=== PATIENT | male | born 1955 | race Caucasian/White ===

== ENCOUNTER 2017-08-17 12:25 | Inpatient (IN) | payer SELFPAY ==
[~2017-08-17] VITALS: Ht 190.5 cm; Wt 152.0 kg
[2017-08-17] VITALS (17 sets, daily range): BP systolic 101–144; BP diastolic 78–111
[2017-08-17] MEDS ORDERED: DILTIAZEM HCL VIAL 5 ML ONE (12:44)
[2017-08-17] MEDS ORDERED: SODIUM CHLORIDE 0.9% 1000ML 1,000 ML ONE (12:44)
[2017-08-17] MEDS ORDERED: ONDANSETRON HCL INJ 2 MG/ML VIAL IV STA ×2 (12:47→13:52)
[2017-08-17] MEDS ORDERED: PANTOPRAZOLE 40 MG 10ML VIAL IV STA (12:47)
[2017-08-17] MEDS ORDERED: VANCOMYCIN 1GM/NS 250 ML 250 ML IV STA (12:47)
[2017-08-17] MEDS ORDERED: SODIUM CHLORIDE 0.9% 1000ML 1,000 ML IV STA ×2 (12:47→12:52)
[2017-08-17 12:59] LABS: BASOPHILS % 0.2 % (0.0-1.0); EOSINOPHILS % 0.1 % (0.0-6.0); HEMOGLOBIN 15.3 g/dL (14.0-18.0); LYMPHOCYTES # (AUTO) 0.9 (1.0-3.2); LYMPHOCYTES % 5.5 % (18.0-39.1); MEAN CORPUSCULAR HGB CONC 32.6 g/dL (31-35); MEAN CORPUSCULAR VOLUME 98.3 fL (81-99); MONOCYTES # (AUTO) 0.6 (0.2-0.8); MONOCYTES % 3.7 % (4.4-11.3); NEUTROPHILS # (AUTO) 15.1 (2.1-6.9); NEUTROPHILS % 89.9 % (38.7-80.0); PLATELET COUNT 139 x10e3/uL (140-360); RED BLOOD COUNT 4.78 x10e6/uL (4.3-5.7); RED CELL DISTRIBUTION WIDTH 14.3 % (11.7-14.4)
[2017-08-17] MEDS ORDERED: DILTIAZEM HCL 5 MG/ML 5 ML VIAL IV ONE ×2 (13:00)
[2017-08-17] MEDS ORDERED: ASPIRIN 81 MG CHEW TAB PO ONE ×2 (13:00→16:00)
[2017-08-17 13:03] LABS: INR 1.46; PROTHROMBIN TIME 16.7 seconds (11.9-14.5)
[2017-08-17 13:04] LABS: PARTIAL THROMBOPLASTIN TIME 32.4 seconds (23.8-35.5)
[2017-08-17 13:13] LABS: ALANINE AMINOTRANSFERASE 40 IU/L (0-55); ALBUMIN/GLOBULIN RATIO 0.7 (0.8-2.0); ALKALINE PHOSPHATASE 75 IU/L (40-150); ANION GAP 12.3 mmol/L (8-16); BLOOD UREA NITROGEN 24 mg/dL (7-26); BUN/CREATININE RATIO 23 (6-25); CALCIUM 9.4 mg/dL (8.4-10.2); CARBON DIOXIDE 26 mmol/L (22-29); CHLORIDE 93 mmol/L (98-107); CREATINE KINASE 229 IU/L (30-200); CREATININE, SERUM 1.06 mg/dL (0.72-1.25); EST GLOMERULAR FILTRATION RATE > 60 ML/MIN (60-); GLUCOSE 136 mg/dL (74-118); MAGNESIUM 1.6 MG/DL (1.3-2.1); POTASSIUM 4.3 mmol/L (3.5-5.1); SODIUM 127 mmol/L (136-145)
[2017-08-17 13:22] LABS: B-TYPE NATRIURETIC PEPTIDE2 203.7 pg/mL (0-100)
[2017-08-17] MEDS ORDERED: DILTIAZEM HCL 5 MG/ML 5 ML VIAL IV NR ×2 (13:44→18:30)
[2017-08-17] MEDS ORDERED: HYDROMORPHONE 1MG/1ML INJ IV STA (13:52)
[2017-08-17] MEDS: DILTIAZEM HCL IV SOLN 125 MG in SODIUM CHLORIDE 0.9% 100 ML IV SCH (13:58)
[2017-08-17] MEDS: SODIUM CHLORIDE 0.9% 1000ML 1,000 ML IV SCH ×2 (14:45→23:00)
[2017-08-17] MEDS ORDERED: AMIODARONE HCL 900 MG in DEXTROSE 5% 500ML 500 ML IV ONE (15:00)
--- NOTE | 2017-08-17 15:14 | Diagnostic Imaging Report ---
PROCEDURE: CHEST SINGLE (PORTABLE) COMPARISON: None. INDICATIONS: CHEST PAIN, DYSPNEA FINDINGS: Lungs are well-inflated. No focal airspace consolidation, pleural effusion, or pneumothorax. Calcified granuloma in the left lower lung zone. The cardiac silhouette is enlarged with prominence of the central pulmonary vasculature. No acute osseous abnormality. CONCLUSION: Cardiomegaly and pulmonary venous congestion. Dictated by: Lake Real M.D. on 08/17/2017 at 13:49 Electronically approved by: Lake Real M.D. on 08/17/2017 at 13:49
[2017-08-17] MEDS ORDERED: AMIODARONE HCL 150MG 100 ML IV NR (15:45)
[2017-08-17] MEDS ORDERED: HYDROMORPHONE 1MG/1ML INJ IV NR (15:46)
[2017-08-17] MEDS ORDERED: HYDROMORPHONE 1MG/1ML INJ IV PRN (16:00)
[2017-08-17] MEDS ORDERED: METOPROLOL TARTRATE INJ 1 MG/ML VIAL IV ONE ×2 (16:45→16:50)
[2017-08-17] MEDS ORDERED: DEXTROSE 50% SYRINGE 50 ML IV PRN (17:00)
[2017-08-17] MEDS ORDERED: DIGOXIN INJ 0.25 MG/ML 2 ML AMP IV ONE (17:00)
[2017-08-17] MEDS: METOPROLOL SUCCINATE 50 MG TAB XL PO SCH (17:10)
[2017-08-17 17:24] LABS: BILIRUBIN,URINE 2+ (NEGATIVE); CLARITY,URINE SL CLOUDY (CLEAR); COLOR,URINE STRAW (YELLOW); KETONES,URINE NEGATIVE (NEGATIVE); LEUKOCYTE ESTERASE ,URINE NEGATIVE (NEGATIVE); NITRITE,URINE NEGATIVE (NEGATIVE); PROTEIN,URINE DIPSTICK 1+ (NEGATIVE); URINE UROBILINOGEN 4 mg/dL (0.2 - 1)
[2017-08-17 17:33] LABS: ABG HCO3 27 mmol/L (23-28); ABG PCO2 89 mmHg (41-51); ABG PH 7.08 (7.31-7.41); ABG PO2 181 mmHg (80-105)
[2017-08-17 17:37] LABS: AMORPHOUS SEDIMENT,URINE FEW (FEW); BACTERIA,URINE MANY /HPF
[2017-08-17] MEDS: PIPER-TAZ 3.375 GM 50 ML IV SCH (18:30)
--- NOTE | 2017-08-17 18:38 | Consultation ---
DATE OF CONSULTATION: August 17, 2017 ADDENDUM CRITICAL CARE NOTE Case discussed with Dr. Hinojosa, Dr. Hirsch, Dr. Burkett. The patient is quite hypoxic on nasal oxygen. His saturation was at level of 80%. Blood gas was drawn. He is now placed on BiPAP with improvement in saturation to 97%. Begin diuresis. Therapy of leg wound as per Dr. Burkett. The patient is agreeable to full measures if necessary, but would prefer not to be intubated if possible. Thank you for this kind referral. Greater than 40 minutes critical care time spent. Job#: [id number]
[2017-08-17] MEDS ORDERED: IPRATROPIUM BROMIDE 0.02% 2.5 ML NEB NEB SCH (19:00)
[2017-08-17] MEDS ORDERED: ACETAMINOPHEN 325 MG TAB PO PRN (19:00)
--- NOTE | 2017-08-17 20:09 | History and Physical ---
HISTORY OF PRESENT ILLNESS: A 62-year-old male with past medical history positive for COPD, very poor historian, history of right congestive heart failure, history of diabetes mellitus type 2. He came here with shortness of breath. The patient was found to be with COPD exacerbation. He was found to have cellulitis on the right leg and admitted to the hospital. REVIEW OF SYSTEMS: CARDIOVASCULAR: No chest pain or palpitation. RESPIRATORY: Shortness of breath but no cough. GASTROINTESTINAL: No nausea, vomiting or diarrhea. GENITOURINARY: No frequency, no dysuria. ALLERGIES: IS NOT ALLERGIC TO ANY MEDICATION. SOCIAL HISTORY: He claims that he does not smoke. He does not drink. PAST MEDICAL HISTORY: Positive for sleep apnea, diastolic congestive heart failure, chronic atrial fibrillation and morbid obesity. PHYSICAL EXAMINATION: VITAL SIGNS: Blood pressure 130/95, temperature is 98 degrees and the heart rate 152 per minute. Respiratory rate 20 per minute. Oxygen saturation on BiPAP 94%. HEART: Showed irregular, irregular rate. No murmur. No extra sounds. LUNGS: Decreased breath sounds bilaterally. ABDOMEN: Soft. EXTREMITIES: Show redness on the right leg with a pretty significant open area. LABORATORY DATA: Blood work we have BMP with a sodium 137, potassium 4.3, chloride 93. CO2 26. BUN 24, creatinine 1.06. Glucose 136. On the CBC white blood count 16.7, hemoglobin 15.3, hematocrit 47.0, platelet count 139,000. PT 16.7. INR 1.46. PTT 32.4. AST 50, ALT 40. Total bilirubin 1.8. Alkaline phosphatase 75. Chest x-ray showed essentially cardiomegaly with pulmonary venous congestion. FINAL IMPRESSION: 1. Acute respiratory failure secondary to acute chronic obstructive pulmonary disease exacerbation and congestive heart failure. 2. Right-sided congestive heart failure. 3. Cellulitis on the right leg. 4. Atrial fibrillation with rapid ventricular response. 5. Morbid obesity. 6. Leukocytosis. 7. Hyponatremia. PLAN OF TREATMENT: Continue with Lasix. Continue Cardizem drip. Continue Zosyn 3.375 grams IV q.6 hours. Continue vancomycin 1 gram IV piggyback twice a day. Continue with D50 IV push as needed for low blood sugar. Continue with Lasix 40 mg IV push twice a day. Continue Dilaudid, which we are going to discontinue after today, and this is to be noted. Continue metoprolol 50 mg twice a day. Continue with the NicoDerm transdermal patch 21 mg daily. Zofran 4 mg IV q.[address] on Tylenol 325 mg p.o. q.4 h. as needed for pain or fever. Going to use morphine only as needed 2 mg IV q.4 h.as needed. The patient is going to be in the intensive care unit. He is on a BiPAP machine. Dr. Jackson has been consulted from pulmonary point of view and Dr. Hirsch for the cardiology point of view also. Patient is in critical condition. Going to also order a hemoglobin A1c. Job#: [id number]
[2017-08-17] MEDS: IPRATROPIUM BROMIDE 0.02% 2.5 ML NEB NEB SCH ×2 (20:20→22:30)
--- NOTE | 2017-08-17 20:46 | Diagnostic Imaging Report ---
Ventilation/perfusion lung scan Clinical Information: 62 M with chest pain, SOB and hypoxia. Comparison: Chest radiograph 08/17/2017 Discussion: Xenon-133 gas 19 mCi was administered via inhalation. Dynamic images of the lungs in the posterior projection were obtained through single breath, equilibrium, and washout phases. Distribution of tracer activity is irregular throughout the lungs. There are no segmental ventilatory defects. Washout of tracer is diffusely delayed without air trapping. Perfusion images of the lungs were obtained in multiple projections following intravenous administration of approximately 6.6 mCi of Tc-99m MAA. Distribution of tracer is irregular throughout the lungs. The contours of the lungs are well demarcated. There are no segmental perfusion defects of any size. The cardiomediastinal silhouette is enlarged. Impression: 1. Scan findings represent a VERY LOW probability for acute pulmonary embolic disease based on the PIOPED II criteria. Scan evidence of obstructive lung disease. 2. Scan findings consistent with COPD. 3. Enlarged cardiac silhouette. Signed by: Dr. Che Grimaldo M.D. on 08/17/2017 8:42 PM
[2017-08-17] MEDS: INSULIN REGULAR, HUMAN 100 UNIT/1 ML 3ML VIAL SQ SCH (21:00)
[2017-08-17] MEDS ORDERED: ENOXAPARIN SOD INJ 40 MG/0.4 ML SYR SC SCH (21:00)
--- NOTE | 2017-08-17 21:16 | Consultation ---
DATE OF CONSULTATION: August 17, 2017 CARDIAC CONSULTATION REASON FOR THE CONSULTATION: Cor pulmonale, right-sided heart failure, pickwickian, atrial fibrillation with rapid ventricular response, severe cellulitis of the right lower extremity. HISTORY: This is an unfortunate 62-year-old gentleman who is basically heavy smoker. He is known with long-standing history of COPD, cor pulmonale. He does have chronic swelling of the lower extremities, is bluish in color, and he always fights for his breath. He is seen locally by several physicians. They have given him fluids pills and other breathing treatment. Patient really truly is crippled, disabled, unable to do anything. He came to the emergency room because of worsening shortness of breath. His problem started with redness and skin loss and marked edema of the right lower extremity. Patient does have chronic swelling of both lower extremities with chronic skin changes. However, the right lower extremity seems to be infected. It is red, it is tender, and redness going all the way to the high side. Patient is miserable. He came to the emergency room because he cannot breathe. Having fever, chills. He is very ill. He was in atrial fibrillation with rapid ventricular response. Patient was in severe respiratory distress. He is on BiPAP. He was "blue in color." His white blood cell count was 16.8 with left shift. His lactic acid is 20.3. His BNP only 203. His ABGs or may be venous sample showed a pH of 7.08, pCO2 of 89, pO2 of 181, on BiPAP. His BUN 24, creatinine of 1.1. His CK total mildly elevated. His troponin is normal. I visited with the patient whom by summary chronically his symptoms are orthopnea; paroxysmal nocturnal dyspnea; and swelling of the lower extremities; class IV shortness of breath at rest, progressively worse over the last few years, worse recently. He does have acute cellulitis of the lower extremities. REVIEW OF SYSTEMS: Done to all systems, only positive ones will be mentioned. GENERAL: Fever, chills. PULMONARY: Very advanced cough, shortness of breath, orthopnea, etc and cyanosis. CARDIAC: No anginal chest pain. No prior myocardial infarction. GI: Bloating, indigestion, marked distention of the abdomen, mainly the lower abdomen. EXTREMITIES: Chronic swelling and edema. NEUROLOGICAL: No motor deficit, but very weak. OTHERS: Severe cellulitis of the right lower extremity with acute illness. SOCIAL HISTORY: He is smoker. He stays with his sister. He is non-alcohol drinker. HOME MEDICATIONS: Diuretics, cannot recall the name. CURRENT MEDICATIONS: Amiodarone, diltiazem, Lasix, Lovenox, vancomycin, Zosyn. ALLERGIES: NONE LISTED. FAMILY HISTORY: No family history of premature coronary artery disease. PHYSICAL EXAMINATION: VITAL SIGNS: Height of 6 feet 4 inches, weight of pounds. Blood pressure 130/100. Heart rate of 160 per minute, irregularly irregular of atrial fibrillation. Respiratory rate is 40 per minute. Temperature of 100 Fahrenheit. HEENT: Pupils are reactive. NECK: Very difficult to assess jugular venous pulsation. CHEST: The chest is hyperinflated with poor air exchange. HEART: Atrial fibrillation with rapid ventricular response. Cyanosis is noted. ABDOMEN: Obese. There is evidence of dependent edema from the umbilical level all the way to the scrotal area. EXTREMITIES: Lower extremities, chronic swelling and chronic skin changes of both lower extremities. On the right, there is evidence of skin loss of the foreleg and evidence of severe cellulitis with streaks of cellulitis all the way to the groin. NEUROLOGICAL: Patient awake, alert. He is able to move his extremities. LAB DATA: White blood cell count of 16.8 with left shift. ABG showed pH of 7.08, pCO2 of 89. BNP of only 203. CK total mildly elevated. Troponin is normal. BUN of 24, creatinine of 1.1. Lactic acid is elevated. IMPRESSION AND PLAN: 1. Cellulitis of the right lower extremity superimposed on chronic venous insufficiency and cor pulmonale finding. 2. Sepsis secondary to the above with hypotension. 3. Atrial fibrillation with rapid ventricular response. 4. Chronic obstructive pulmonary disease, pickwickian, morbid obesity, smoker with hypercapnic respiratory distress, on bi-PAP positive airway pressure. 5. Cor Pulmonale and advanced right heart failure 6. Debility. PLAN: Will be towards addressing the acute septic status and infection with IV antibiotics and IV fluids rescue. He does have cor pulmonale, pickwickian, and right-sided heart failure. His BNP is only 203. Controlling his atrial fibrillation with Cardizem, anticoagulation. Prognosis is very guarded. Case discussed with the nursing staff. Case discussed with Dr. Jackson and Dr. Hinojosa. Job#: [id number] DR WILEY
[2017-08-17] MEDS: ENOXAPARIN INJ 80 MG/0.8 ML SYR SC SCH (21:20)
[2017-08-17] MEDS: FUROSEMIDE INJ 10 MG/ML 4 ML VIAL IV SCH (21:20)
[2017-08-17 22:08] LABS: CREATINE KINASE MB 4.8 ng/mL (0-5.0)
--- NOTE | 2017-08-17 23:59 | Diagnostic Imaging Report ---
EXAM: CHEST XRAY LINE PLACEMENT, AP 1 view INDICATION: Right PICC placement COMPARISON: None FINDINGS: LINES/TUBES: Right approach PICC with tip terminating in the expected location of the distal superior vena cava. LUNGS: Vascular congestion/edema PLEURA: No effusions or pneumothorax. HEART AND MEDIASTINUM: Enlargement of the cardiomediastinal silhouette. BONES AND SOFT TISSUES: No acute findings. IMPRESSION: Marked enlargement of the cardiomediastinal silhouette with vascular congestion/early edema. Tip of right approach PICC terminates in expected location of the distal superior vena cava. Signed by: Dr. Brittny Jacques M.D. on 08/17/2017 11:56 PM
[2017-08-18] VITALS (114 sets, daily range): BP systolic 47–133; BP diastolic 25–118
[2017-08-18] MEDS: PIPER-TAZ 3.375 GM 50 ML IV SCH ×3 (00:26→12:00)
[2017-08-18] MEDS: DILTIAZEM HCL IV SOLN 125 MG in SODIUM CHLORIDE 0.9% 100 ML IV SCH (00:29)
[2017-08-18] MEDS: IPRATROPIUM BROMIDE 0.02% 2.5 ML NEB NEB SCH ×4 (02:15→18:45)
[2017-08-18] MEDS ORDERED: VANCOMYCIN HCL 1 GM in SODIUM CHLORIDE 0.9% 250ML 250 ML IV SCH (05:00)
[2017-08-18] MEDS ORDERED: VANCOMYCIN HCL 1GM/NS 250 ML BAG IV SCH (05:00)
[2017-08-18] MEDS ORDERED: VANCOMYCIN 1GM/NS 250 ML 250 ML IV SCH ×2 (05:00→13:15)
[2017-08-18 05:31] LABS: ABG PH 7.07 (7.31-7.41)
[2017-08-18 05:32] LABS: ABG HCO3 26 mmol/L (23-28); ABG PCO2 90 mmHg (41-51); ABG PO2 75 mmHg (80-105)
[2017-08-18 06:09] LABS: BASOPHILS % 0.1 % (0.0-1.0); HEMATOCRIT 48.2 % (38.2-49.6); HEMOGLOBIN 14.8 g/dL (14.0-18.0); LYMPHOCYTES # (AUTO) 0.4 (1.0-3.2); LYMPHOCYTES % 2.1 % (18.0-39.1); MEAN CORPUSCULAR HEMOGLOBIN 32.2 pg (28-32); MEAN CORPUSCULAR HGB CONC 30.7 g/dL (31-35); MEAN CORPUSCULAR VOLUME 104.8 fL (81-99); MONOCYTES # (AUTO) 1.1 (0.2-0.8); MONOCYTES % 5.2 % (4.4-11.3); NEUTROPHILS # (AUTO) 18.5 (2.1-6.9); PLATELET COUNT 180 x10e3/uL (140-360); RED CELL DISTRIBUTION WIDTH 14.6 % (11.7-14.4)
[2017-08-18 06:24] LABS: INR 1.55; PROTHROMBIN TIME 17.5 seconds (11.9-14.5)
[2017-08-18] MEDS ORDERED: MIDAZOLAM HCL 2 MG/2 ML VIAL IV PRN (06:30)
[2017-08-18 06:38] LABS: CREATINE KINASE MB 3.5 ng/mL (0-5.0)
[2017-08-18] MEDS: FENTANYL CITRATE INJ 2,000 MCG in SODIUM CHLORIDE 0.9% 250ML 210 ML IV PRN ×2 (06:57→21:03)
[2017-08-18 06:59] LABS: CALCIUM 8.4 mg/dL (8.4-10.2); CREATININE, SERUM 2.06 mg/dL (0.72-1.25)
[2017-08-18] MEDS: INSULIN REGULAR, HUMAN 100 UNIT/1 ML 3ML VIAL SQ SCH ×4 (07:30→20:32)
[2017-08-18 07:35] LABS: BAND NEUTROPHILS % (MANUAL) 2 %; LYMPHOCYTES % (MANUAL) 1 % (19-48); MONOCYTES % (MANUAL) 4 % (3.4-9.0); NEUTROPHILS % (MANUAL) 93 % (40-74)
[2017-08-18 07:36] LABS: PLATELET ESTIMATE ADEQUATE; RBC MORPHOLOGY COMMENT NORMAL
[2017-08-18] MEDS ORDERED: AMIODARONE HCL 900 MG in DEXTROSE 5 % 500ML BOTTLE 500 ML IV SCH (08:15)
--- NOTE | 2017-08-18 08:25 | Diagnostic Imaging Report ---
EXAM: CHEST SINGLE (PORTABLE), AP 2 views INDICATION: Intubation. Tube placement. COMPARISON: 08/17/17. FINDINGS: LINES/TUBES: Right approach PICC with tip terminating in the expected location of the distal superior vena cava. ET tube has been placed, with final image demonstrating its distal tip projected at the level of the sternal clavicular junction is thoracic inlet adequate position. LUNGS: Bilateral pulmonary venous congestion and central pulmonary edema. PLEURA: No pneumothorax. Small left pleural effusion with obscuration of the left hemidiaphragm. HEART AND MEDIASTINUM: Enlargement of the cardiomediastinal silhouette. BONES AND SOFT TISSUES: No acute findings. IMPRESSION: Status post ET tube placement with distal tip in adequate position on final image. Otherwise no significant change. Signed by: Dr. Tanvi Rizvi M.D. on 08/18/2017 8:21 AM
[2017-08-18] MEDS: SILVER ANTIMICROBIAL WOUND GEL 45ML TP SCH (09:00)
[2017-08-18] MEDS ORDERED: ENOXAPARIN INJ 80 MG/0.8 ML SYR SC SCH (09:00)
[2017-08-18] MEDS: FUROSEMIDE INJ 10 MG/ML 4 ML VIAL IV SCH (09:00)
[2017-08-18] MEDS: METOPROLOL SUCCINATE 50 MG TAB XL PO SCH (09:00)
[2017-08-18] MEDS ORDERED: ENOXAPARIN SOD INJ 40 MG/0.4 ML SYR SC SCH (09:00)
[2017-08-18] MEDS: ENOXAPARIN INJ 80 MG/0.8 ML SYR SC SCH (09:00)
[2017-08-18 09:28] LABS: ABG PH 7.06 (7.31-7.41)
[2017-08-18 09:29] LABS: ABG HCO3 24 mmol/L (23-28); ABG PCO2 85 mmHg (41-51); ABG PO2 53 mmHg (80-105)
[2017-08-18 09:31] LABS: ABG PCO2 65 mmHg (41-51); ABG PH 7.18 (7.31-7.41)
[2017-08-18 09:32] LABS: ABG HCO3 24 mmol/L (23-28); ABG PO2 54 mmHg (80-105)
[2017-08-18] MEDS ORDERED: SODIUM BICARBONATE 8.4% INJ 50 ML SYR IV ONE (10:09)
[2017-08-18] MEDS ORDERED: SOD POLYSTYRENE SULFONATE SUSP 15 GM/60 ML BTL PO ONE (10:30)
[2017-08-18] MEDS ORDERED: AZITHROMYCIN 500MG/NS 250 ML 250 ML IV SCH (12:45)
[2017-08-18] MEDS ORDERED: FUROSEMIDE INJ 10 MG/ML 4 ML VIAL IV ONE ×2 (13:45→15:30)
[2017-08-18] MEDS: CEFEPIME HCL 2 GM VIAL IV SCH ×2 (14:00→21:00)
--- NOTE | 2017-08-18 14:16 | Consultation ---
DATE OF CONSULTATION: REASON FOR CONSULTATION: Sepsis, cellulitis of the leg. HISTORY OF PRESENT ILLNESS: This is a 62-year-old white male who has history of obesity, cor pulmonale, right-sided failure, atrial fibrillation, COPD, smoker. Comes in disheveled. Comes into the hospital because he was not doing well. Short of breath. Intubated currently. He was noted to have a large bullous on his right leg. The patient is currently intubated and sedated. There is no family. History was taken mainly from the chart. The patient has been seen by cardiology and critical care. I was asked to see him to help with antibiotic. Patient does not provide any information. At the present time, he is intubated and sedated. PAST MEDICAL HISTORY: Obesity, COPD, CHF. PAST SURGICAL HISTORY: Not available. ALLERGIES: NKA. SOCIAL HISTORY: Positive for smoker. PHYSICAL EXAMINATION GENERAL: He is currently intubated and sedated. VITALS: Stable. Temperature is 97.5. No fever since admission. HEENT: Not icteric. NECK: Supple. CHEST: Clear. COR: No murmur. ABDOMEN: Soft, obese. There are redness and swelling involving his right leg from the knee all the way to the ankle. IMPRESSION: Sepsis present on admission, source is cellulitis of the right leg. Will put him on vancomycin and cefepime. Await the blood cultures. There is husky discoloration in the feet. I am concerned about circulatory problem. Prognosis is very guarded. Will follow vancomycin trough. Will follow up the cultures. Will follow with you. Job#: [id number]
[2017-08-18] MEDS: FUROSEMIDE INJ 100 MG in SODIUM CHLORIDE 0.9% 100 ML 90 ML IV SCH ×2 (14:30→23:17)
[2017-08-18] MEDS: MIDAZOLAM HCL 2 MG/2 ML VIAL IV PRN ×3 (14:41→23:25)
--- NOTE | 2017-08-18 15:04 | Diagnostic Imaging Report ---
EXAM: CHEST SINGLE (PORTABLE), AP 2 views INDICATION: Orogastric tube placement. COMPARISON: 08/17/17. 08/18/2017 at 7:42 AM hours. LINES/TUBES: Right approach PICC with tip terminating in the expected location of the distal superior vena cava. ET tube with distal tip projected at the level of the sternal clavicular junction is thoracic inlet adequate position, unchanged. Interval placement of an orogastric tube, which extends below the diaphragm, with distal tip not well visualized, however, in the gastric fundus or upper body. LUNGS: Bilateral pulmonary venous congestion and central pulmonary edema. Atelectasis. PLEURA: No pneumothorax. Small left pleural effusion with obscuration of the left hemidiaphragm. HEART AND MEDIASTINUM: Enlargement of the cardiomediastinal silhouette. BONES AND SOFT TISSUES: No acute findings. IMPRESSION: Status post orogastric tube placement the tip projected on the left upper quadrant, likely within upper stomach. Otherwise no significant change. Signed by: Dr. Tanvi Rizvi M.D. on 08/18/2017 3:01 PM
--- NOTE | 2017-08-18 15:24 | Consultation ---
DATE OF CONSULTATION: August 18, 2017 NEPHROLOGY CONSULTATION REASON FOR CONSULTATION: Acute kidney injury, hyperkalemia and hyponatremia. HISTORY OF PRESENT ILLNESS: This is a 62-year-old white gentleman with a past medical history of heavy smoking and normal serum creatinine of 1.1 in the past, COPD, morbid obesity, sleep apnea, congestive heart failure, chronic atrial fibrillation, was admitted with shortness of breath, right leg cellulitis, and AFib with RVR. He was noted to have elevated serum creatinine of around 2. While in the ER, his blood pressure dropped and he became more short of breath and hypoxic. He was intubated and transferred to the ICU. Nephrology consultation was obtained since he does not make much urine. Creatinine was 8. Potassium was 6 and sodium was 122. At the time of my examination, he appeared in no acute distress. He was intubated, but awake. PAST MEDICAL AND SURGICAL HISTORY: As above. PERSONAL/SOCIAL HISTORY: Could not be obtained reliably as the patient was intubated. MEDICATIONS: See the medication sheet that was reviewed. I's and O's 1280 and 400 out, but in the last 4-6 hours, he has made only 20 mL of urine. PHYSICAL EXAMINATION VITALS: Blood pressure 97/68, respirations 18, heart rate 89. HEENT: Head was atraumatic and normocephalic. Pupils were reactive to light. NECK: Supple. No JVD, no lymphadenopathy or thyromegaly. CHEST: Revealed fair air entry with bibasilar crackles. HEART: S1 and S2. ABDOMEN: Obese and soft. Bowel sounds were positive. EXTREMITIES: Chronic edema. Varicose veins and possibly lymphedema with redness, erythema and swelling of the right leg up to the thigh from cellulitis. 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 LABS: White cell count 20.1, hemoglobin 14.8, hematocrit 48.2, and platelets 180,000. Urine showed specific gravity of 1.030, pH 6, 2+ bilirubin, otherwise negative. Sodium 122, potassium 6, chloride 89, CO2 23, BUN 35, creatinine 2.06. His serum creatinine yesterday was 1.06. IMAGING: Chest x-ray showed central pulmonary vascular congestion and pulmonary edema. V/Q scan was low probability for PE. IMPRESSION 1. Acute kidney injury, most likely secondary to acute tubular necrosis with hyperkalemia and oligoanuria: Nephropathy cannot be ruled out. 2. Hyponatremia: Serum sodium dropping from 127 to 122 possibly from volume overload and maybe underlying syndrome of inappropriate antidiuretic hormone from chronic obstructive pulmonary disease, questionable. 3. Chronic obstructive pulmonary disease exacerbation requiring intubation. 4. Congestive heart failure with pulmonary edema and volume overload. Strict I's and O's. No nonsteroidal anti-inflammatory drugs, GRACIELA inhibitors, intravenous dye, ARBs. Urinalysis spot urine sodium and creatinine. Ultrasound of the kidneys. CMP in a.m. BMP stat to see if the potassium is any lower as he got some Kayexalate earlier. 5. Consult interventional radiology to place a temporary dialysis catheter in anticipation of dialysis in case his potassium cannot be controlled medically. Will give another dose of Lasix 40 mg intravenously one dose now, and start him on Lasix infusion at 10 mg an hour. Further recommendations to follow. Will monitor closely for dialysis needs later today or tomorrow morning. This was discussed with the patient who could understand me very well. I explained the risks and benefits of the catheter placement and dialysis. Thank you for the consultation. Job#: [id number] MIRANDA
[2017-08-18 15:26] LABS: ANION GAP 17.4 mmol/L (8-16); CALCIUM 8.5 mg/dL (8.4-10.2); CREATININE, SERUM 2.75 mg/dL (0.72-1.25); POTASSIUM 5.4 mmol/L (3.5-5.1)
--- NOTE | 2017-08-18 15:34 | Progress Note ---
DATE: August 18, 2017 INTERNAL MEDICINE PROGRESS NOTE SUBJECTIVE: The patient was intubated last night due to respiratory failure. He is sedated right now. PHYSICAL EXAMINATION VITAL SIGNS: Blood pressure is 115/78. Temperature 96.3, heart rate 84 per minute, respiratory rate is 20 per minute. Oxygen saturation 91%. HEART: Regular rhythm, normal S1 and S2 sounds. LUNGS: Clear bilaterally but significantly decreased. ABDOMEN: Soft, slightly distended. EXTREMITIES: Significant redness on most of the right leg and the lower half of the right thigh. BLOOD WORK: We have BMP with sodium 122, potassium 6.0, chloride 89, CO2 23, BUN 35, creatinine 2.06. Glucose is 304. CBC: White blood count 20,100, hemoglobin 14.8, hematocrit 48.2, platelet count 180,000. PT 13.5, PTT 32.4, INR 1.55. AST 50, ALT 40, total bilirubin 1.8, alkaline phosphatase 75. FINAL IMPRESSION 1. Acute respiratory failure secondary to acute congestive heart failure and chronic obstructive pulmonary disease. 2. Sepsis. 3. Cellulitis of the right leg. 4. Vdryv-lx-befyrrw renal failure. 5. Hyperkalemia. 6. Hyponatremia. 7. Elevated liver function tests. 8. Disseminated intravascular coagulation. PLAN OF TREATMENT 1. Continue ventilator support. 2. Continue albuterol and Atrovent q.4 h. 3. Vancomycin 1 gram IV piggyback twice a day. 4. Nicotine patch 21 mg daily. 5. Zofran 4 mg IV every 4 hours as needed. 6. Protonix 40 mg daily. 7. Cefepime 2 grams IV piggyback q.8 h. 8. Furosemide 40 mg IV twice a day. 9. Versed 2 mg IV q.4 h. as needed for sedation. 10. Continue monitoring blood sugar q.6 h. 11. Continue heparin 5,000 units subcutaneous twice a day for DVT prophylaxis. 12. Morphine 2 mg IV twice a day. 13. Prednisolone 20 mg twice a day also. 14. Patient is in critical condition due to the combination of respiratory failure, sepsis, acute renal failure, hyponatremia, chronic obstructive pulmonary disease, sleep apnea also and disseminated intravascular coagulation. Dr. Guo is on the case for infectious disease, Dr. Cassius Armstrong for nephrology, Dr. William Hirsch for cardiology, Dr. Kirk for critical care. The patient is in the intensive care unit. Job#: [id number] AMY
--- NOTE | 2017-08-18 15:34 | Consultation ---
DATE OF CONSULTATION: August 17, 2017 CHIEF COMPLAINT: Right leg pain. HISTORY OF PRESENT ILLNESS: The patient is a 62-year-old gentleman who states that he had a blister on his right leg. He cannot tell me why the blister developed. He denies any history of trauma. He said the blister popped. He came into the emergency room with complaints of chest pain and shortness of breath. Orthopedic consultation was requested for his cellulitic right leg. PAST MEDICAL HISTORY/MEDICAL CONCERNS: COPD, hypertension, and morbid obesity. PREVIOUS SURGERIES: Back surgery. MEDICATIONS: See admission list. SOCIAL HISTORY: He smokes and drinks alcohol on a regular basis. He lives with his mother and brother. 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 PHYSICAL EXAMINATION GENERAL: The patient is morbidly obese with a weight somewhere around 340 pounds. He states his height is 6 feet 3 inches. This gives him a BMI of 43. He appears to be heavier. He is short of breath and is receiving oxygen treatment. It is difficult to obtain a history because of his shortness of breath. EXTREMITIES: His lower extremities both have severe edema. The right lower extremity has pronounced erythema circumferentially below the knee. The compartments are not tense. His feet demonstrate poor hygiene. Homans sign is negative. LABORATORY STUDIES: He has a white blood cell count of nearly 17,000. He has a number of blood chemistry disorders. Medically frail 62-year-old gentleman with severe morbid obesity and cellulitis in his right leg. There is a blister that has been debrided and is clean. The leg has an appearance of a second-degree burn over the anterior aspect. This measures about 10 cm x 15 cm. I do not appreciate any swelling in the knee. Exam is compromised secondary to his pulmonary status, but he is able to range his right knee. The knee is currently stable. His lower extremity is further notable for poor hygiene. His feet are dirty. He has a negative Homans sign. IMPRESSION: A 62-year-old gentleman with multiple medical issues including cellulitis of his right lower extremity. I did not appreciate any evidence that there is any intra-articular infection in the right knee. There does not appear to be a discrete abscess. I would recommend consulting the wound care team for local care. He will be admitted for IV antibiotics. His pulmonary and cardiac status is being addressed separately. Thank you for the consultation. Job#: [id number] CF
[2017-08-18 16:33] LABS: CLARITY,URINE CLOUDY (CLEAR); COLOR,URINE AMBER (YELLOW); KETONES,URINE NEGATIVE (NEGATIVE); LEUKOCYTE ESTERASE ,URINE TRACE (NEGATIVE); NITRITE,URINE NEGATIVE (NEGATIVE); PROTEIN,URINE DIPSTICK 3+ (NEGATIVE); URINE UROBILINOGEN 4 mg/dL (0.2 - 1)
[2017-08-18 16:34] LABS: BILIRUBIN,URINE 1+ (NEGATIVE)
[2017-08-18 16:43] LABS: AMORPHOUS SEDIMENT,URINE MODERATE (FEW); BACTERIA,URINE FEW /HPF; MUCUS,URINE RARE (RARE)
[2017-08-18 16:52] LABS: CREATININE,URINE RANDOM 141.82 mg/dL (63-166); SODIUM,URINE 32 mmol/L
[2017-08-18] MEDS: VANCOMYCIN HCL 1.5 GM in SODIUM CHLORIDE 0.9% 250ML 300 ML IV SCH (17:00)
[2017-08-18] MEDS ORDERED: SODIUM BICARBONATE 8.4% INJ 50 ML SYR IV STA (18:12)
[2017-08-18] MEDS ORDERED: DEXTROSE 50% SYRINGE 50 ML IV STA (18:12)
[2017-08-18] MEDS ORDERED: INSULIN REGULAR, HUMAN 100 UNIT/1 ML 3ML VIAL SQ ONE (18:15)
[2017-08-18] MEDS ORDERED: SOD POLYSTYRENE SULFONATE SUSP 15 GM/60 ML BTL PR ONE (18:15)
[2017-08-18] MEDS ORDERED: ETOMIDATE 40 MG/ 20ML VIAL IV ONE (19:10)
[2017-08-18] MEDS ORDERED: SUCCINYLCHOLINE CHLORIDE 20 MG/ML 10ML VIAL ONE (19:10)
[2017-08-18] MEDS: METHYLPREDNISOLONE SOD SUCC 40 MG/ML VIAL IV SCH (20:31)
[2017-08-18] MEDS ORDERED: HEPARIN SOD (PORCINE) 5,000 UNIT/ML VIAL SC SCH (21:00)
[2017-08-18 21:02] LABS: ANION GAP 14.7 mmol/L (8-16); CALCIUM 8.4 mg/dL (8.4-10.2); CREATININE, SERUM 3.24 mg/dL (0.72-1.25); POTASSIUM 4.7 mmol/L (3.5-5.1)
[2017-08-19] VITALS (93 sets, daily range): BP systolic 76–176; BP diastolic 56–141
[2017-08-19] MEDS: IPRATROPIUM BROMIDE 0.02% 2.5 ML NEB NEB SCH ×6 (02:40→23:00)
[2017-08-19] MEDS: FENTANYL CITRATE INJ 2,000 MCG in SODIUM CHLORIDE 0.9% 250ML 210 ML IV PRN (02:56)
[2017-08-19] MEDS: MIDAZOLAM HCL 2 MG/2 ML VIAL IV PRN ×3 (04:37→18:30)
[2017-08-19 05:05] LABS: BASOPHILS % 0.2 % (0.0-1.0); HEMOGLOBIN 15.1 g/dL (14.0-18.0); LYMPHOCYTES # (AUTO) 0.5 (1.0-3.2); LYMPHOCYTES % 3.8 % (18.0-39.1); MEAN CORPUSCULAR HEMOGLOBIN 32.1 pg (28-32); MEAN CORPUSCULAR HGB CONC 31.5 g/dL (31-35); MEAN CORPUSCULAR VOLUME 102.1 fL (81-99); MONOCYTES # (AUTO) 0.9 (0.2-0.8); MONOCYTES % 6.5 % (4.4-11.3); NEUTROPHILS # (AUTO) 12.7 (2.1-6.9); NEUTROPHILS % 88.8 % (38.7-80.0); PLATELET COUNT 187 x10e3/uL (140-360); RED CELL DISTRIBUTION WIDTH 14.6 % (11.7-14.4)
[2017-08-19 05:35] LABS: INR 1.28
[2017-08-19 05:36] LABS: PARTIAL THROMBOPLASTIN TIME 40.1 seconds (23.8-35.5)
[2017-08-19 05:44] LABS: ALBUMIN 2.7 g/dL (3.5-5.0); ALBUMIN/GLOBULIN RATIO 0.6 (0.8-2.0); CALCIUM 8.8 mg/dL (8.4-10.2); CREATININE, SERUM 3.48 mg/dL (0.72-1.25)
[2017-08-19] MEDS ORDERED: VANCOMYCIN 1GM/NS 250 ML 500 ML ONE (05:55)
[2017-08-19] MEDS: CEFEPIME HCL 2 GM VIAL IV SCH (06:04)
[2017-08-19] MEDS: VANCOMYCIN HCL 1.5 GM in SODIUM CHLORIDE 0.9% 250ML 300 ML IV SCH (06:04)
[2017-08-19] MEDS: INSULIN REGULAR, HUMAN 100 UNIT/1 ML 3ML VIAL SQ SCH ×3 (06:06→18:00)
[2017-08-19 07:30] LABS: ANISOCYTOSIS SLIGHT; BAND NEUTROPHILS % (MANUAL) 9 %; LYMPHOCYTES % (MANUAL) 5 % (19-48); MONOCYTES % (MANUAL) 10 % (3.4-9.0); NEUTROPHILS % (MANUAL) 76 % (40-74)
[2017-08-19 07:31] LABS: PLATELET ESTIMATE ADEQUATE; PLATELET MORPHOLOGY COMMENT NORMAL; RBC MORPHOLOGY COMMENT NORMAL
--- NOTE | 2017-08-19 08:15 | Diagnostic Imaging Report ---
PROCEDURE: CHEST SINGLE (PORTABLE) COMPARISON: Patients [facility], DX, CHEST SINGLE (PORTABLE), 08/18/2017, 14:35. INDICATIONS: INTUBATED FINDINGS: LUNGS: Worsening pulmonary edema. PLEURA: No effusions or pneumothorax. HEART \T\ MEDIASTINUM: The heart remains enlarged. Endotracheal tube tip is at the clavicle. Nasogastric tube extends below the diaphragm. Right-sided PICC terminates overlying the mediastinum. BONES \T\ SOFT TISSUES: No acute findings. CONCLUSION: Worsening pulmonary edema. Guille Menjivar D.O. Dictated by: Guille Menjivar D.O. on 08/19/2017 at 8:19 Electronically approved by: Guille Menjivar D.O. on 08/19/2017 at 8:19
--- NOTE | 2017-08-19 08:54 | Consultation ---
DATE OF CONSULTATION: August 17, 2017 PULMONARY CONSULTATION A patient of Dr. Hinojosa, also followed by a pain management doctor on [facility]. 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 He has had a wound in the leg which he described as a boil, probably a bulla which burst this morning. He has had fever and chills, chest tightness, shortness of breath, history of hypertension, history of sleep apnea but does not have a sleep machine. He lives with his brother and mother, who apparently take care of him. He works irregularly, not in the hot [place] wood. He has been intolerant of diabetic medicine and does not believe he is a diabetic. He does have a history of hypertension and heart disease. He has no regular medications that he can recall though he thinks he is on medicine for indigestion, pain and hypertension. He has had back surgery after an accident. He smoked 2 to 3 packs a day for over 40 years, down to a pack a day. 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 Born in [place] in . Family history is positive for coronary disease, which was premature, and diabetes. PHYSICAL EXAMINATION GENERAL: A burly, cyanotic white male. Awake and alert. VITAL SIGNS: Temperature 98.2, pulse 158 and irregular, respirations 25, blood pressure 124/96. HEAD: Normocephalic, atraumatic. NECK: A bull neck. LUNGS: Basilar rales. HEART: Irregularly irregular rhythm. ABDOMEN: Distended and edematous. EXTREMITIES: Also edematous and erythematous with an area of what looks like scalded skin in the right lower extremity where a bulla had burst. IMPRESSION: One of 1. Sepsis. 2. Cellulitis. 3. Wound. 4. Atrial fibrillation. 5. Heart failure. 6. Respiratory failure. PLAN: To anticoagulate. Broad-spectrum antibiotics. IV fluids. Rate control. Correct hyponatremia. Monitor for coagulopathy. BNP was elevated at 203. I will request echocardiogram, venous Doppler and V/Q lung scan. Patient is critically ill and will go to ICU. Continue broad-spectrum antibiotics with staph and gram-negative cover. Thank you for this kind referral. Job#: [id number] EV
[2017-08-19] MEDS: METHYLPREDNISOLONE SOD SUCC 40 MG/ML VIAL IV SCH (09:00)
[2017-08-19] MEDS: PANTOPRAZOLE 40 MG 10ML VIAL IV SCH (09:00)
[2017-08-19] MEDS ORDERED: VANCOMYCIN 1GM/NS 250 ML 250 ML IV SCH (09:00)
[2017-08-19] MEDS ORDERED: LIDOCAINE HCL 1% LOCAL INJ 20 ML VIAL ONE (09:09)
[2017-08-19] MEDS: FUROSEMIDE INJ 100 MG in SODIUM CHLORIDE 0.9% 100 ML 90 ML IV SCH ×2 (10:14→19:22)
[2017-08-19] MEDS: SILVER ANTIMICROBIAL WOUND GEL 45ML TP SCH (10:16)
[2017-08-19] MEDS ORDERED: DAPTOMYCIN 500 MG in SODIUM CHLORIDE 0.9% 100 ML IV SCH (12:00)
[2017-08-19] MEDS ORDERED: CLINDAMYCIN PHOS 900MG/ D5W 50 50 ML IV SCH (12:00)
--- NOTE | 2017-08-19 13:22 | Diagnostic Imaging Report ---
PROCEDURE: A single AP view of the chest. COMPARISON: Patients [facility], DX, CHEST SINGLE (PORTABLE), 08/19/2017, 7:29. INDICATIONS: LINE PLACEMENT FINDINGS: Lines/tubes: No change in the ET tube, nasogastric tube or right sided PICC line. Right IJ temporary hemodialysis catheter in appropriate location with the tip overlying region of the right atrium. Lungs: No change in the pulmonary edema. Pleura: There is no pleural effusion or pneumothorax. Heart and mediastinum: The heart remains enlarged. Bones: No acute bony abnormality. IMPRESSION: 1. Appropriate position of the right IJ temporary hemodialysis catheter. 2. No change in the pulmonary edema or cardiomegaly. Guille Menjivar D.O. Dictated by: Guilel Menjivar D.O. on 08/19/2017 at 13:27 Electronically approved by: Guille Menjivar D.O. on 08/19/2017 at 13:27
--- NOTE | 2017-08-19 13:29 | Diagnostic Imaging Report ---
PROCEDURE:US RETROPERITONEAL ( KIDNEY ). COMPARISON:None. INDICATIONS:MAXINE TECHNIQUE: Fang-scale and color sonographic images of the bilateral kidneys and bladder where obtained in transverse and longitudinal planes. Study is limited due to the patient's body habitus. FINDINGS: RIGHT KIDNEY: Measures 11.0 x 7.4 x 6.1 cm, cortex measures 1.8 cm Cysts: None Solid masses: None Stones: None Hydronephrosis: None Echogenicity: Increased echogenicity. LEFT KIDNEY: Measures 10.4 x 5.5 x 6.0 cm, cortex measures 1.8 cm Cysts: None Solid masses: None Stones: None Hydronephrosis: None Echogenicity: Increased echogenicity. Bladder: Velazquez catheter decompresses the bladder. Prostate: Not seen CONCLUSION: 1. No evidence of hydronephrosis. 2. Increased echogenicity of the kidneys. Guille Menjivar D.O. Dictated by: Guille Menjivar D.O. on 08/19/2017 at 13:33 Electronically approved by: Guille Menjivar D.O. on 08/19/2017 at 13:33
--- NOTE | 2017-08-19 13:35 | Diagnostic Imaging Report ---
PROCEDURE:NON-TUNNELLED CVC CATH PLACMNT COMPARISON:None. INDICATIONS: MAXINE COMPLICATIONS: None MEDICATIONS: Patient received a routine dose of Versed prior to the procedure administered by the ICU nurse. BLOOD LOSS: Less than 2 cc PROCEDURE: Ultrasound was utilized for guidance to place a 21 gauge skinny needle into the right internal jugular vein. This was followed by a 0.018 " wire and then a micropuncture sheath. Through the micropuncture sheath a 0.035 " Amplatz Super Stiff wire was advanced centrally. Serial dilatation was accomplished with 8 and 12 Fr dilators. A 13 Fr 19 cm long temporary hemodialysis catheter was then advanced centrally. The catheter was secured to the skin. Each port aspirates and flushes freely. The patient tolerated the procedure well. Post procedure chest x-ray was ordered. CONCLUSION: Successful non-tunneled right IJ temporary hemodialysis catheter placement. Guille Menjivar D.O. Dictated by: Guille Menjivar D.O. on 08/19/2017 at 13:39 Electronically approved by: Guille Menjivar D.O. on 08/19/2017 at 13:39
--- NOTE | 2017-08-19 13:37 | Diagnostic Imaging Report ---
PROCEDURE:US GUIDANCE FOR VASCULAR ACCESS COMPARISON:None. INDICATIONS:Dialysis Catheter Placement FINDINGS:Ultrasound evaluation of the right neck was performed. The right internal jugular vein is patent and compressible. US guidance was used to puncture the vein. A permanent recording was created for the patient record. CONCLUSION:Patent right internal jugular vein with successful needle puncture for temporary hemodialysis catheter placement. Guille Menjivar D.O. Dictated by: Guille Menjivar D.O. on 08/19/2017 at 13:42 Electronically approved by: Guille Menjivar D.O. on 08/19/2017 at 13:42
[2017-08-19] MEDS ORDERED: HEPARIN 25,000 UNIT/D5W 250ML 250 ML IV SCH (13:45)
[2017-08-19] MEDS: DAPTOMYCIN 500 MG in SODIUM CHLORIDE 0.9% 100 ML IV SCH (14:00)
[2017-08-19] MEDS: AMIODARONE HCL 900 MG in DEXTROSE 5% 500ML 500 ML IV SCH (17:00)
[2017-08-19 17:53] LABS: INR 1.35; PARTIAL THROMBOPLASTIN TIME 32.5 seconds (23.8-35.5); PROTHROMBIN TIME 15.7 seconds (11.9-14.5)
[2017-08-19] MEDS: HEPARIN 25,000U/0.45% NS 250ML 1,000 UNIT in SODIUM CHLORIDE 0.9% 250ML 0 ML IV SCH (18:30)
[2017-08-19] MEDS: ACETAMINOPHEN 325 MG/10 ML UDC NG PRN (19:00)
--- NOTE | 2017-08-19 19:06 | Progress Note ---
DATE: August 19, 2017 INTERNAL MEDICINE PROGRESS NOTE ADDENDUM Another diagnosis is paroxysmal atrial fibrillation with rapid ventricular response. The patient is getting amiodarone drip. He is also getting heparin drip and also because of that the patient is looking slightly better today. We are going to wean him off the ventilator as tolerated. Job#: [id number] GH
[2017-08-19 19:08] LABS: % IRON SATURATION 12 % (15-50); IRON 24 ug/dL (65-175); TOTAL IRON BINDING CAPACITY 196 ug/dL (261-478); TRANSFERRIN 140 mg/dL (174-364)
[2017-08-19] MEDS ORDERED: VASOPRESSIN 100 UNIT in DEXTROSE 5% 100ML 100 ML IV PRN (19:15)
--- NOTE | 2017-08-19 19:16 | Progress Note ---
DATE: INTERNAL MEDICINE PROGRESS NOTE SUBJECTIVE: A 62-year-old male, who is intubated. He is more awake now. He is off the sedation. PHYSICAL EXAM: VITAL SIGNS: Blood pressure 98/85. Temperature 98.6. Heart rate 128 per minute. Respiratory rate 24 per minute. Oxygen saturation 96%. HEART: Irregularly irregular heart rate. Normal S1, S2 sounds. LUNGS: Clear bilaterally, but significantly decreased. ABDOMEN: Soft, nondistended. EXTREMITIES: Show open wound on the medial aspect the right leg with significant redness. LAB WORK: BMP: Sodium 135, potassium 5.0, chloride 98, CO2 24, BUN 59, creatinine 3.48, glucose 158. On the CBC, white blood count 14.2, hemoglobin 15.1, hematocrit 48.0, platelet count 197,000. PT 15.0, INR 1.28, PTT 40.1. AST 208, ALT 86, total bilirubin 1.8, alkaline phosphatase 80. FINAL IMPRESSION: 1. Acute respiratory failure secondary to congestive heart failure and chronic obstructive pulmonary disease exacerbation. 2. Sepsis. 3. Cellulitis on the right leg. 4. Ddspz-uy-dtucwog renal failure stage 3. 5. Hyperkalemia. 6. Hyponatremia. 7. Elevated liver function test. 8. Disseminated intravascular coagulation. PLAN OF TREATMENT: Continue ventilator support. Wean as tolerated. Continue albuterol and Atrovent q.4 h. Vancomycin is discontinued, has been switched to clindamycin q.8 h. Continue Protonix 40 mg daily. Continue monitoring blood sugar q.6 h. Continue daptomycin every 48 hours, nicotine patch 21 mg daily, meropenem 500 mg IV daily, heparin 5000 units subcutaneously twice a day for DVT prophylaxis, Tylenol 325 mg q.4 h. as needed for pain or fever. Continue with Lasix. Continue Zofran 4 mg IV q.4 h. as needed for vomiting, morphine 2 mg IV q.6 h. as needed, methylprednisolone 20 mg IV q.12 h. Blood culture so far negative. Urine culture negative. Chest x-ray showed congestive heart failure. Job#: [id number]
[2017-08-19] MEDS ORDERED: SODIUM CHLORIDE 0.9% 1000ML 1,000 ML ONE (20:00)
[2017-08-19] MEDS ORDERED: HEPARIN SOD (PORCINE) 1000 UNIT/ML SDV ONE (20:01)
[2017-08-20] VITALS (92 sets, daily range): BP systolic 94–138; BP diastolic 60–119
[2017-08-20] MEDS: INSULIN REGULAR, HUMAN 100 UNIT/1 ML 3ML VIAL SQ SCH ×4 (00:36→18:38)
[2017-08-20] MEDS: IPRATROPIUM BROMIDE 0.02% 2.5 ML NEB NEB SCH ×6 (02:15→22:49)
[2017-08-20] MEDS: FENTANYL CITRATE INJ 2,000 MCG in SODIUM CHLORIDE 0.9% 250ML 210 ML IV PRN ×2 (02:30→17:06)
[2017-08-20] MEDS: FUROSEMIDE INJ 100 MG in SODIUM CHLORIDE 0.9% 100 ML 90 ML IV SCH ×2 (04:57→18:45)
[2017-08-20 05:46] LABS: BASOPHILS % 0.2 % (0.0-1.0); HEMATOCRIT 44.9 % (38.2-49.6); HEMOGLOBIN 14.5 g/dL (14.0-18.0); LYMPHOCYTES # (AUTO) 0.8 (1.0-3.2); LYMPHOCYTES % 5.3 % (18.0-39.1); MEAN CORPUSCULAR HEMOGLOBIN 32.3 pg (28-32); MEAN CORPUSCULAR HGB CONC 32.3 g/dL (31-35); MONOCYTES % 6.6 % (4.4-11.3); NEUTROPHILS # (AUTO) 13.4 (2.1-6.9); NEUTROPHILS % 87.1 % (38.7-80.0); PLATELET COUNT 194 x10e3/uL (140-360); RED BLOOD COUNT 4.49 x10e6/uL (4.3-5.7); RED CELL DISTRIBUTION WIDTH 14.6 % (11.7-14.4)
[2017-08-20 06:12] LABS: ANION GAP 15.4 mmol/L (8-16); CALCIUM 8.8 mg/dL (8.4-10.2); CREATININE, SERUM 2.54 mg/dL (0.72-1.25); POTASSIUM 4.4 mmol/L (3.5-5.1)
[2017-08-20] MEDS: METHYLPREDNISOLONE SOD SUCC 40 MG/ML VIAL IV SCH (07:55)
[2017-08-20] MEDS ORDERED: HEPARIN SOD (PORCINE) 1000 UNIT/ML SDV ONE (08:58)
[2017-08-20] MEDS ORDERED: SODIUM CHLORIDE 0.9% 1000ML 1,000 ML ONE (08:58)
[2017-08-20] MEDS: MUPIROCIN 2% OINT 22 GM TUBE TOP SCH (09:00)
[2017-08-20] MEDS: SILVER ANTIMICROBIAL WOUND GEL 45ML TP SCH (09:00)
[2017-08-20] MEDS ORDERED: MEROPENEM 500MG 500 MG in SODIUM CHLORIDE 0.9% 50ML 50 ML IV SCH (09:00)
[2017-08-20] MEDS: DEXMEDETOMIDINE HCL 200 MCG in SODIUM CHLORIDE 0.9% 50ML 48 ML IV PRN ×5 (11:15→22:51)
[2017-08-20] MEDS: DILTIAZEM HCL 60 MG TAB NG SCH ×2 (11:19→18:00)
[2017-08-20] MEDS ORDERED: HEPARIN 25,000U/0.45% NS 250ML 250 ML ONE (13:56)
[2017-08-20] MEDS: HEPARIN 25,000U/0.45% NS 250ML 1,000 UNIT in SODIUM CHLORIDE 0.9% 250ML 0 ML IV SCH (14:00)
[2017-08-20] MEDS: PANTOPRAZOLE 40 MG 10ML VIAL IV SCH (14:20)
[2017-08-20] MEDS: MEROPENEM 500 MG VIAL IV SCH (14:20)
--- NOTE | 2017-08-20 16:29 | Progress Note ---
DATE: August 20, 2017 INTERNAL MEDICINE PROGRESS NOTE SUBJECTIVE: Patient is still intubated. PHYSICAL EXAMINATION VITAL SIGNS: Blood pressure is 111/77, temperature 98.1, heart rate 112 per minute. Respiratory rate 17 per minute. Oxygen saturation 95%. HEART: Regular rhythm. Normal S1 and S2 sounds. LUNGS: Clear bilaterally. ABDOMEN: Soft but distended. EXTREMITIES: Redness on the right leg with an open wound and covered with a dressing. LABS: On the blood work, we have BMP with sodium 136, potassium 4.4, chloride 100, CO2 25, BUN 61, creatinine 2.54. Glucose 151. On the CBC, white blood count 15.4, hemoglobin 14.5, hematocrit 44.9, platelet count 194,000. PT 15.7, INR 1.35, PTT 39.8. AST 208, ALT 86, total bilirubin 1.8, alkaline phosphatase 80. FINAL IMPRESSION 1. Acute respiratory failure secondary to congestive heart failure. 2. Sepsis. 3. Cellulitis of the right leg. 4. Mshho-dy-jhlagzt renal failure, stage 3 to 4. 5. Atrial fibrillation with rapid ventricular response. 6. Cor pulmonale. 7. Chronic obstructive pulmonary disease exacerbation. 8. Fjiot-ch-utmpebw diastolic congestive heart failure. 9. Hypertensive nephropathy. PLAN OF TREATMENT 1. Continue ventilator support. 2. Continue fentanyl for sedation. 3. Continue Atrovent q.4 h. 4. Continue furosemide drip. 5. Continue dialysis. 6. Continue daptomycin q.48 h. 7. Continue nicotine patch 21 mg daily. 8. Continue monitoring blood sugar q.6 h. 9. Continue Tylenol 325 mg q.4 h. as needed. 10. Amiodarone drip. 11. Zofran 4 mg IV q.4 h. 12. Morphine 2 mg IV q.6 h. as needed. 13. Meropenem 500 mg p.o. daily 14. Cardizem 60 mg by NG tube q.6 h. 15. Vasopressin to titrate to keep the systolic blood pressure more than 90. 16. Protonix 40 mg daily IV. 17. Methylprednisolone 20 mg IV daily. 18. Dexmedetomidine drip. 19. Midazolam 2 mg IV q.4 h. as needed. 20. Mupirocin application daily. 21. Patient remains in critical condition. Continue current regimen. Dr. Payton will be covering for me starting today Sunday, August 20, 2017, until Wednesday, August 23, 2017. Job#: [id number] AMY
--- NOTE | 2017-08-20 22:31 | Diagnostic Imaging Report ---
EXAM: CT CHEST WO INDICATION: Cellulitis, CHF COMPARISON: None TECHNIQUE: Multidetector CT scanning of the chest was performed. Coronal and sagittal multiplanar reformations were obtained. Routine protocol performed. IV Contrast: None CTDIvol has been reviewed. It is below the limits set by the Radiation Protocol Committee (RPC). FINDINGS: LUNGS AND AIRWAYS: Endotracheal tube in place. Mild septal thickening. Vascular congestion and bibasilar atelectasis. PLEURA: Small bilateral layering pleural effusions. HEART, MEDIASTINUM, VESSELS: The heart is enlarged. No abnormal pericardial effusion. Atherosclerotic changes of the thoracic aorta without aneurysm. Right approach PICC and internal jugular vein central line terminating in the distal superior vena cava. No mediastinal mass or lymphadenopathy. UPPER ABDOMEN: Nasal/orogastric tube terminates in the body of the stomach. MUSCULOSKELETAL: No acute findings. IMPRESSION: Cardiomegaly, vascular congestion, interstitial edema, bibasilar atelectasis and small bilateral pleural effusions. Signed by: Dr. Brittny Jacques M.D. on 08/20/2017 10:28 PM
[2017-08-21] VITALS (79 sets, daily range): BP systolic 95–151; BP diastolic 71–117
[2017-08-21] MEDS: AMIODARONE HCL 900 MG in DEXTROSE 5% 500ML 500 ML IV SCH ×2 (00:34→17:00)
[2017-08-21] MEDS: DILTIAZEM HCL 60 MG TAB NG SCH ×5 (00:42→23:13)
[2017-08-21] MEDS: DEXMEDETOMIDINE HCL 200 MCG in SODIUM CHLORIDE 0.9% 50ML 48 ML IV PRN ×7 (00:45→19:00)
[2017-08-21] MEDS: FENTANYL CITRATE INJ 2,000 MCG in SODIUM CHLORIDE 0.9% 250ML 210 ML IV PRN ×4 (00:45→21:22)
[2017-08-21] MEDS: INSULIN REGULAR, HUMAN 100 UNIT/1 ML 3ML VIAL SQ SCH ×5 (00:47→23:14)
[2017-08-21] MEDS: FUROSEMIDE INJ 100 MG in SODIUM CHLORIDE 0.9% 100 ML 90 ML IV SCH ×3 (02:30→14:36)
[2017-08-21] MEDS: IPRATROPIUM BROMIDE 0.02% 2.5 ML NEB NEB SCH ×6 (03:00→23:15)
[2017-08-21 06:15] LABS: BASOPHILS % 0.2 % (0.0-1.0); EOSINOPHILS % 0.1 % (0.0-6.0); HEMATOCRIT 44.8 % (38.2-49.6); HEMOGLOBIN 14.5 g/dL (14.0-18.0); LYMPHOCYTES # (AUTO) 1.1 (1.0-3.2); LYMPHOCYTES % 9.9 % (18.0-39.1); MEAN CORPUSCULAR HEMOGLOBIN 32.3 pg (28-32); MEAN CORPUSCULAR HGB CONC 32.4 g/dL (31-35); MEAN CORPUSCULAR VOLUME 99.8 fL (81-99); MONOCYTES % 8.6 % (4.4-11.3); NEUTROPHILS # (AUTO) 9.1 (2.1-6.9); NEUTROPHILS % 79.7 % (38.7-80.0); PLATELET COUNT 207 x10e3/uL (140-360); RED BLOOD COUNT 4.49 x10e6/uL (4.3-5.7); RED CELL DISTRIBUTION WIDTH 14.5 % (11.7-14.4)
[2017-08-21 06:31] LABS: ANION GAP 15.2 mmol/L (8-16); CALCIUM 8.8 mg/dL (8.4-10.2); CREATININE, SERUM 2.12 mg/dL (0.72-1.25); POTASSIUM 4.2 mmol/L (3.5-5.1)
--- NOTE | 2017-08-21 08:24 | Diagnostic Imaging Report ---
EXAM: CHEST SINGLE (PORTABLE), AP 2 views INDICATION: CHF. Intubated. COMPARISON: 08/18/2017 at 12:46 PM hours LINES/TUBES: Redemonstration of a approach PICC with tip terminating in the expected location of the distal superior vena cava. Right neck central venous catheter with distal tip projected on the cavoatrial junction. ET tube with distal tip projected approximately 2.8 cm proximal to the raya in adequate position, unchanged. Orogastric tube present on the her examination is not clearly visualized on today's exam. LUNGS: There has been some interval increase in bilateral pulmonary venous congestion and central pulmonary edema. PLEURA: No pneumothorax. Bilateral pleural effusions. HEART AND MEDIASTINUM: Enlargement of the cardiomediastinal silhouette. BONES AND SOFT TISSUES: No acute findings. IMPRESSION: Some interval increase in bilateral pulmonary venous congestion and central pulmonary edema. Orogastric tube not visualized. Otherwise stable tubes and lines. Signed by: Dr. Tanvi Rizvi M.D. on 08/21/2017 8:21 AM
[2017-08-21] MEDS: MUPIROCIN 2% OINT 22 GM TUBE TOP SCH (08:57)
[2017-08-21] MEDS: SILVER ANTIMICROBIAL WOUND GEL 45ML TP SCH (08:57)
[2017-08-21] MEDS ORDERED: SUCCINYLCHOLINE CHLORIDE 20 MG/ML 10ML VIAL ONE (12:04)
[2017-08-21] MEDS ORDERED: ETOMIDATE 40 MG/ 20ML VIAL IV ONE (12:04)
[2017-08-21] MEDS ORDERED: HEPARIN SOD (PORCINE) 1000 UNIT/ML SDV ONE (12:52)
[2017-08-21] MEDS: DAPTOMYCIN 500 MG in SODIUM CHLORIDE 0.9% 100 ML IV SCH (14:14)
[2017-08-21] MEDS: METHYLPREDNISOLONE SOD SUCC 40 MG/ML VIAL IV SCH (14:47)
[2017-08-21] MEDS: MEROPENEM 500 MG VIAL IV SCH (14:47)
[2017-08-21] MEDS: PANTOPRAZOLE 40 MG 10ML VIAL IV SCH (14:47)
[2017-08-21] MEDS ORDERED: MIDAZOLAM HCL 2 MG/2 ML VIAL IV ONE (15:00)
[2017-08-21] MEDS: MIDAZOLAM HCL 2 MG/2 ML VIAL IV PRN ×3 (15:30→20:30)
--- NOTE | 2017-08-21 17:20 | Diagnostic Imaging Report ---
EXAM: ABDOMEN-1VIEW (KUB), DATE: 08/21/2017 3:41 PM INDICATION: Orogastric tube placement. COMPARISON: None FINDINGS: Markedly limited examination. Only a portion of the abdomen was included. The orogastric tube is not visualized for diagnostic comment. IMPRESSION: Limited examination. An orogastric tube is not visualized for diagnostic comment. Signed by: Dr. Tanvi Rizvi M.D. on 08/21/2017 5:16 PM
[2017-08-21] MEDS: HEPARIN 25,000U/0.45% NS 250ML 1,000 UNIT in SODIUM CHLORIDE 0.9% 250ML 0 ML IV SCH (17:39)
[2017-08-21] MEDS ORDERED: DIATRIZOATE MEGL/DIATRIZOA SOD 30 ML BTL PO ONE (18:38)
--- NOTE | 2017-08-21 19:32 | Diagnostic Imaging Report ---
EXAM: ABDOMEN-1VIEW (KUB), supine INDICATION: OGT placement COMPARISON: August 21, 2017 at 1610 hours FINDINGS: See impression IMPRESSION: Partial visualization of the upper abdomen for the purpose of identifying orogastric tube placement. The tip of the orogastric tube is in the expected location of the body of the stomach. Oral contrast is seen in the fundus of the stomach. Signed by: Dr. Brittny Jacques M.D. on 08/21/2017 7:29 PM
[2017-08-22] VITALS (75 sets, daily range): BP systolic 65–191; BP diastolic 41–124
[2017-08-22] MEDS: MIDAZOLAM HCL 2 MG/2 ML VIAL IV PRN (00:30)
[2017-08-22] MEDS: IPRATROPIUM BROMIDE 0.02% 2.5 ML NEB NEB SCH ×6 (02:51→22:55)
[2017-08-22 04:53] LABS: BASOPHILS % 0.2 % (0.0-1.0); HEMOGLOBIN 15.8 g/dL (14.0-18.0); LYMPHOCYTES % 11.4 % (18.0-39.1); MEAN CORPUSCULAR HEMOGLOBIN 32.1 pg (28-32); MEAN CORPUSCULAR HGB CONC 32.9 g/dL (31-35); MEAN CORPUSCULAR VOLUME 97.6 fL (81-99); MONOCYTES # (AUTO) 0.8 (0.2-0.8); MONOCYTES % 8.7 % (4.4-11.3); NEUTROPHILS % 77.9 % (38.7-80.0); PLATELET COUNT 219 x10e3/uL (140-360); RED BLOOD COUNT 4.92 x10e6/uL (4.3-5.7); RED CELL DISTRIBUTION WIDTH 14.4 % (11.7-14.4)
[2017-08-22] MEDS: DEXMEDETOMIDINE HCL 200 MCG in SODIUM CHLORIDE 0.9% 50ML 48 ML IV PRN (04:55)
[2017-08-22] MEDS: FENTANYL CITRATE INJ 2,000 MCG in SODIUM CHLORIDE 0.9% 250ML 210 ML IV PRN (04:56)
[2017-08-22 05:12] LABS: ALBUMIN 2.6 g/dL (3.5-5.0); ALBUMIN/GLOBULIN RATIO 0.6 (0.8-2.0); ANION GAP 15.7 mmol/L (8-16); CALCIUM 9.1 mg/dL (8.4-10.2); CREATININE, SERUM 1.41 mg/dL (0.72-1.25); POTASSIUM 3.7 mmol/L (3.5-5.1)
[2017-08-22 05:14] LABS: B-TYPE NATRIURETIC PEPTIDE2 1088.6 pg/mL (0-100)
[2017-08-22 05:35] LABS: THYROID STIMULATING HORMONE 1.45 uIU/mL (0.350-4.940)
--- NOTE | 2017-08-22 05:58 | Diagnostic Imaging Report ---
EXAM: CHEST SINGLE (PORTABLE), AP 1 view INDICATION: CHF, pneumonia COMPARISON: AP view of the chest August 21, 2017 FINDINGS: LINES/TUBES: Endotracheal tube, nasal/orogastric tube and endotracheal tube. LUNGS: Pulmonary edema. PLEURA: Bilateral pleural effusions. HEART AND MEDIASTINUM: Enlargement of the cardiomediastinal silhouette. BONES AND SOFT TISSUES: No acute findings. IMPRESSION: No interval change. Signed by: Dr. Brittny Jacques M.D. on 08/22/2017 5:55 AM
[2017-08-22] MEDS: DILTIAZEM HCL 60 MG TAB NG SCH ×3 (06:36→18:16)
[2017-08-22] MEDS: INSULIN REGULAR, HUMAN 100 UNIT/1 ML 3ML VIAL SQ SCH ×3 (06:38→18:00)
[2017-08-22] MEDS ORDERED: HEPARIN 25,000U/0.45% NS 250ML 250 ML ONE ×2 (07:21→21:15)
[2017-08-22] MEDS: METHYLPREDNISOLONE SOD SUCC 40 MG/ML VIAL IV SCH (08:28)
[2017-08-22] MEDS: MUPIROCIN 2% OINT 22 GM TUBE TOP SCH (08:30)
[2017-08-22] MEDS: SILVER ANTIMICROBIAL WOUND GEL 45ML TP SCH (08:30)
[2017-08-22 09:16] LABS: ABG HCO3 36 mmol/L (23-28); ABG PCO2 48 mmHg (41-51); ABG PH 7.48 (7.31-7.41); ABG PO2 68 mmHg (80-105)
[2017-08-22] MEDS: PANTOPRAZOLE 40 MG 10ML VIAL IV SCH (09:30)
[2017-08-22] MEDS: MEROPENEM 500 MG VIAL IV SCH (09:30)
[2017-08-22] MEDS: DIGOXIN INJ 0.25 MG/ML 2 ML AMP IV SCH ×3 (11:55→18:16)
[2017-08-22] MEDS: FUROSEMIDE INJ 100 MG in SODIUM CHLORIDE 0.9% 100 ML 90 ML IV SCH ×2 (11:55→21:30)
[2017-08-22 12:46] LABS: INR 1.41; PROTHROMBIN TIME 16.2 seconds (11.9-14.5)
[2017-08-22] MEDS ORDERED: RANITIDINE HCL150 MG PO (15:26)
[2017-08-22] MEDS ORDERED: NORCO 10-325 T1 EACH PO (15:26)
[2017-08-22] MEDS ORDERED: AMLODIPINE BESYL5 MG PO (15:26)
--- NOTE | 2017-08-22 16:54 | Consultation ---
DATE OF CONSULTATION: INCOMPLETE REPORT Job#: [id number] EV
[2017-08-22] MEDS: AMIODARONE HCL 900 MG in DEXTROSE 5% 500ML 500 ML IV SCH (17:00)
[2017-08-22] MEDS: ONDANSETRON HCL INJ 2 MG/ML VIAL IV PRN (17:30)
[2017-08-22] MEDS ORDERED: DIGOXIN INJ 0.25 MG/ML 2 ML AMP ONE (18:13)
[2017-08-22] MEDS: WARFARIN SOD 5 MG TAB PO SCH (18:27)
[2017-08-22] MEDS: NICOTINE 21 MG/EA PATCH TOP PRN (19:20)
[2017-08-22] MEDS: HEPARIN 25,000U/0.45% NS 250ML 1,000 UNIT in SODIUM CHLORIDE 0.9% 250ML 0 ML IV SCH (21:30)
[2017-08-23] VITALS (42 sets, daily range): BP systolic 106–165; BP diastolic 76–129
[2017-08-23] MEDS: DILTIAZEM HCL 60 MG TAB NG SCH ×4 (01:10→18:36)
[2017-08-23] MEDS: IPRATROPIUM BROMIDE 0.02% 2.5 ML NEB NEB SCH ×6 (02:45→23:33)
[2017-08-23 04:48] LABS: BASOPHILS % 0.3 % (0.0-1.0); EOSINOPHILS % 0.1 % (0.0-6.0); HEMATOCRIT 49.3 % (38.2-49.6); HEMOGLOBIN 16.2 g/dL (14.0-18.0); LYMPHOCYTES # (AUTO) 1.2 (1.0-3.2); LYMPHOCYTES % 10.9 % (18.0-39.1); MEAN CORPUSCULAR HEMOGLOBIN 31.9 pg (28-32); MEAN CORPUSCULAR HGB CONC 32.9 g/dL (31-35); MONOCYTES # (AUTO) 1.1 (0.2-0.8); MONOCYTES % 9.9 % (4.4-11.3); NEUTROPHILS # (AUTO) 8.7 (2.1-6.9); NEUTROPHILS % 77.1 % (38.7-80.0); PLATELET COUNT 263 x10e3/uL (140-360); RED BLOOD COUNT 5.08 x10e6/uL (4.3-5.7); RED CELL DISTRIBUTION WIDTH 14.5 % (11.7-14.4)
[2017-08-23 05:12] LABS: ALANINE AMINOTRANSFERASE 92 IU/L (0-55); ALBUMIN 2.8 g/dL (3.5-5.0); ALBUMIN/GLOBULIN RATIO 0.6 (0.8-2.0); ALKALINE PHOSPHATASE 62 IU/L (40-150); ANION GAP 14.3 mmol/L (8-16); BLOOD UREA NITROGEN 42 mg/dL (7-26); BUN/CREATININE RATIO 36 (6-25); CALCIUM 9.5 mg/dL (8.4-10.2); CARBON DIOXIDE 39 mmol/L (22-29); CHLORIDE 100 mmol/L (98-107); CREATININE, SERUM 1.16 mg/dL (0.72-1.25); EST GLOMERULAR FILTRATION RATE > 60 ML/MIN (60-); GLUCOSE 125 mg/dL (74-118); POTASSIUM 3.3 mmol/L (3.5-5.1); SODIUM 150 mmol/L (136-145)
[2017-08-23] MEDS: FUROSEMIDE INJ 100 MG in SODIUM CHLORIDE 0.9% 100 ML 90 ML IV SCH (05:30)
[2017-08-23] MEDS: ONDANSETRON HCL INJ 2 MG/ML VIAL IV PRN ×2 (05:50→10:02)
[2017-08-23] MEDS: INSULIN REGULAR, HUMAN 100 UNIT/1 ML 3ML VIAL SQ SCH ×4 (06:00→18:36)
--- NOTE | 2017-08-23 06:35 | Diagnostic Imaging Report ---
EXAM: CHEST SINGLE (PORTABLE), AP 1 view INDICATION: COPD COMPARISON: AP view of the chest August 22, 2017 FINDINGS: LINES/TUBES: Stable appearance of right internal jugular vein hemodialysis catheter and right approach PICC. Interval removal of endotracheal tube. LUNGS: Mild pulmonary edema. PLEURA: Decreasing pleural effusions. HEART AND MEDIASTINUM: Stable enlargement of the cardiac mediastinal silhouette. BONES AND SOFT TISSUES: No acute findings. IMPRESSION: Interval removal of endotracheal tube. Decreasing bilateral pleural effusions. Signed by: Dr. Brittny Jacques M.D. on 08/23/2017 6:31 AM
[2017-08-23] MEDS ORDERED: DEXTROSE 5% 1,000 ML IV SCH (07:55)
[2017-08-23] MEDS ORDERED: POTASSIUM CHLORIDE 10MEQ/100ML 100 ML IV ONE (08:00)
[2017-08-23] MEDS: MUPIROCIN 2% OINT 22 GM TUBE TOP SCH (08:25)
[2017-08-23] MEDS: PANTOPRAZOLE 40 MG 10ML VIAL IV SCH (08:25)
[2017-08-23] MEDS: SILVER ANTIMICROBIAL WOUND GEL 45ML TP SCH (08:25)
[2017-08-23] MEDS: METHYLPREDNISOLONE SOD SUCC 40 MG/ML VIAL IV SCH (08:25)
[2017-08-23] MEDS ORDERED: DEXTROSE 5% 1,000 ML IV ONE (08:30)
[2017-08-23] MEDS ORDERED: POTASSIUM CHLORIDE 10MEQ/100ML 300 ML IV ONE (08:30)
[2017-08-23] MEDS: MEROPENEM 500 MG VIAL IV SCH (08:33)
[2017-08-23] MEDS: DEXTROSE 5% 1,000 ML IV SCH ×2 (09:57→23:50)
[2017-08-23] MEDS: MORPHINE SULFATE 2 MG/ML SYR IV PRN ×3 (10:02→23:23)
[2017-08-23] MEDS: HEPARIN 25,000U/0.45% NS 250ML 1,000 UNIT in SODIUM CHLORIDE 0.9% 250ML 0 ML IV SCH ×2 (10:03→23:44)
[2017-08-23] MEDS ORDERED: POTASSIUM CHLORIDE 20MEQ/15ML UDC NG NR (14:00)
[2017-08-23] MEDS: FUROSEMIDE INJ 10 MG/ML 4 ML VIAL IV SCH ×2 (14:00→23:11)
[2017-08-23] MEDS ORDERED: HYDRALAZINE HCL 10 MG TAB PO SCH (14:00)
[2017-08-23] MEDS: HYDRALAZINE HCL 25 MG TAB PO SCH ×2 (14:00→23:11)
[2017-08-23] MEDS: DAPTOMYCIN 500 MG in SODIUM CHLORIDE 0.9% 100 ML IV SCH (15:00)
[2017-08-23] MEDS: AMIODARONE HCL 900 MG in DEXTROSE 5% 500ML 500 ML IV SCH (17:00)
[2017-08-23] MEDS: WARFARIN SOD 5 MG TAB PO SCH (18:35)
--- NOTE | 2017-08-23 21:06 | Progress Note ---
DATE: INTERNAL MEDICINE PROGRESS NOTE SUBJECTIVE: He has been extubated. He is awake and he is doing well. He is probably going to go to the medical floor today. PHYSICAL EXAM: VITAL SIGNS: Blood pressure 160/93. Temperature 98.0. Heart rate 116 per minute. Respiratory rate is 18 per minute. Oxygen saturation 98%. HEART: Show irregularly irregular heart rate. Normal S1 and S2 sounds. LUNGS: Show decreased breath sounds bilaterally. ABDOMEN: Soft. Slightly distended. EXTREMITIES: Show 1 to 2+ bilateral pedal edema. He has redness and an open wound on the medial aspect of the right leg. On the BMP: Sodium 150, potassium 3.3, chloride 100, CO2 39, BUN 42, creatinine 1.16, glucose 125. On the CBC: White blood count 11,300, hemoglobin 16.2, hematocrit 49.3, platelet count 263,000. PT 16.2, INR 1.41, PTT 63.1. AST 101, ALT 92, total bilirubin is 1.3, alkaline phosphatase 62. FINAL IMPRESSION: 1. Status post acute respiratory failure secondary to congestive heart failure, which is resolved. Patient was extubated. 2. Sepsis. 3. Cellulitis with an open wound on the medial aspect of the right leg. 4. Chronic obstructive pulmonary disease. 5. Obstructive sleep apnea. 6. Right-sided congestive heart failure. 7. Acute on chronic renal failure. 8. Atrial fibrillation with rapid ventricular response. 9. Obesity. 10. Hypokalemia. PLAN OF TREATMENT: Continue albuterol and Atrovent as needed for shortness of breath. Continue daptomycin q.48 h. Amiodarone drip. Continue vasopressin as needed for hypotension. Continue Protonix 40 mg daily. Furosemide 40 mg IV q.8 h. Continue monitoring blood sugar a.c. and nightly. Hydralazine 25 mg q.8 h. Continue NicoDerm patch 21 mg daily. Continue D5W at 70 mL an hour. Meropenem 500 mg IV piggyback daily. Coumadin 5 mg daily. Morphine 2 mg IV q.6 h. as needed. Solu-Medrol 20 mg IV once a day. Cardizem 90 mg p.o. q.6 h. Once the patient is off of the amiodarone drip and the vasopressin drip, then the patient can be transferred out of the ICU. Job#: [id number] EV
[2017-08-23] MEDS: NICOTINE 21 MG/EA PATCH TOP PRN (23:23)
[2017-08-23] MEDS ORDERED: HEPARIN 25,000U/0.45% NS 250ML 250 ML ONE (23:43)
[2017-08-24] VITALS (8 sets, daily range): BP systolic 127–156; BP diastolic 74–95
[2017-08-24] MEDS: DILTIAZEM HCL 60 MG TAB NG SCH ×4 (01:16→17:55)
[2017-08-24] MEDS: IPRATROPIUM BROMIDE 0.02% 2.5 ML NEB NEB SCH ×6 (03:37→23:30)
[2017-08-24] MEDS: INSULIN REGULAR, HUMAN 100 UNIT/1 ML 3ML VIAL SQ SCH ×4 (06:00→18:10)
[2017-08-24] MEDS: FUROSEMIDE INJ 10 MG/ML 4 ML VIAL IV SCH (06:07)
[2017-08-24] MEDS: MORPHINE SULFATE 2 MG/ML SYR IV PRN ×3 (06:07→21:06)
[2017-08-24] MEDS: HYDRALAZINE HCL 25 MG TAB PO SCH ×3 (06:08→21:06)
[2017-08-24 06:28] LABS: ALANINE AMINOTRANSFERASE 77 IU/L (0-55); ALBUMIN 2.7 g/dL (3.5-5.0); ALBUMIN/GLOBULIN RATIO 0.6 (0.8-2.0); ALKALINE PHOSPHATASE 53 IU/L (40-150); ANION GAP 12.1 mmol/L (8-16); BLOOD UREA NITROGEN 30 mg/dL (7-26); BUN/CREATININE RATIO 30 (6-25); CALCIUM 9.2 mg/dL (8.4-10.2); CHLORIDE 94 mmol/L (98-107); CREATININE, SERUM 0.99 mg/dL (0.72-1.25); EST GLOMERULAR FILTRATION RATE > 60 ML/MIN (60-); GLUCOSE 147 mg/dL (74-118); MAGNESIUM 1.7 MG/DL (1.3-2.1); POTASSIUM 3.1 mmol/L (3.5-5.1); SODIUM 144 mmol/L (136-145)
--- NOTE | 2017-08-24 06:29 | Diagnostic Imaging Report ---
CHEST SINGLE (PORTABLE), 08/24/2017 5:00 AM Technique: CHEST SINGLE (PORTABLE) Comparison: 09/02/2017 Clinical history: COPD Findings: See Impression Impression: Limited portable view with motion artifact 1. Lines/Tubes: Stable right IJ dialysis catheter and right PICC near the expected cavoatrial junction. 2. Stable enlarged cardiac silhouette. 3. Central vascular congestion and/or mild edema. Trace effusions. Signed by: Dr Jenny Jarvis MD on 08/24/2017 6:26 AM
[2017-08-24 06:41] LABS: CARBON DIOXIDE 41 mmol/L (22-29)
[2017-08-24 06:51] LABS: BASOPHILS % 0.2 % (0.0-1.0); EOSINOPHILS # (AUTO) 0.1 (0.0-0.4); EOSINOPHILS % 0.5 % (0.0-6.0); HEMOGLOBIN 15.7 g/dL (14.0-18.0); LYMPHOCYTES # (AUTO) 1.2 (1.0-3.2); LYMPHOCYTES % 10.9 % (18.0-39.1); MEAN CORPUSCULAR HGB CONC 32.7 g/dL (31-35); MEAN CORPUSCULAR VOLUME 97.8 fL (81-99); MONOCYTES # (AUTO) 0.9 (0.2-0.8); MONOCYTES % 8.1 % (4.4-11.3); NEUTROPHILS # (AUTO) 8.8 (2.1-6.9); NEUTROPHILS % 79.5 % (38.7-80.0); PLATELET COUNT 262 x10e3/uL (140-360); RED BLOOD COUNT 4.91 x10e6/uL (4.3-5.7); RED CELL DISTRIBUTION WIDTH 14.2 % (11.7-14.4)
[2017-08-24] MEDS: METHYLPREDNISOLONE SOD SUCC 40 MG/ML VIAL IV SCH (08:48)
[2017-08-24] MEDS: MEROPENEM 500 MG VIAL IV SCH (08:48)
[2017-08-24] MEDS: PANTOPRAZOLE 40 MG 10ML VIAL IV SCH (08:48)
[2017-08-24] MEDS: SILVER ANTIMICROBIAL WOUND GEL 45ML TP SCH (08:49)
[2017-08-24] MEDS: MUPIROCIN 2% OINT 22 GM TUBE TOP SCH (08:49)
[2017-08-24 10:35] LABS: PHOSPHORUS 2.7 MG/DL (2.3-4.7)
[2017-08-24] MEDS ORDERED: POTASSIUM CHLORIDE 10 MEQ TABCR PO ONE (11:00)
[2017-08-24 12:28] LABS: INR 2.38; PROTHROMBIN TIME 24.4 seconds (11.9-14.5)
[2017-08-24] MEDS ORDERED: POTASSIUM CHLORIDE 20MEQ/100ML 100 ML IV ONE (12:45)
[2017-08-24] MEDS ORDERED: SODIUM CHLORIDE 0.9% 250ML 250 ML ONE (13:03)
[2017-08-24] MEDS: DEXTROSE 5% 1,000 ML IV SCH (15:10)
[2017-08-24] MEDS: WARFARIN SOD 5 MG TAB PO SCH (17:54)
[2017-08-24] MEDS: FUROSEMIDE 40 MG TAB PO SCH (17:55)
[2017-08-24] MEDS: ZOLPIDEM TARTRATE 5 MG TAB PO PRN (23:01)
[2017-08-24] MEDS: NICOTINE 21 MG/EA PATCH TOP PRN (23:01)
--- NOTE | 2017-08-24 23:12 | Progress Note ---
DATE: INTERNAL MEDICINE PROGRESS NOTE SUBJECTIVE: He is doing well. He is extubated. He was transferred to the medical floor. PHYSICAL EXAMINATION VITAL SIGNS: Blood pressure 133/90. Temperature 97.6. Heart rate 91 per minute. Respiratory rate is 20 per minute. Oxygen saturation 93%. HEART: Irregularly irregular heart rate, normal S1 and S2 sounds. LUNGS: Clear bilaterally. ABDOMEN: Soft. EXTREMITIES: Redness of the right leg with open wound on the medial aspect of the right leg. BLOOD WORK: We have BMP with sodium 144, potassium 3.1, chloride 94, CO2 41, BUN 30, creatinine 0.99, glucose 147. On the CBC, white blood count 11,000, hemoglobin 15.7, hematocrit 48.0, platelet count 262,000. PT 24.4, INR 2.38, PTT 75.2. AST 64, ALT 77, total bilirubin 1.2, alkaline phosphatase 53. FINAL IMPRESSION 1. Status post acute respiratory failure secondary to congestive heart failure, which is resolved. Patient is extubated. 2. Sepsis. 3. Cellulitis with an open wound on the medial aspect of the right leg. 4. Chronic obstructive pulmonary disease. 5. Sleep apnea. 6. Right-sided congestive heart failure. 7. Smigh-zv-jamztwa renal failure, stage 4. 8. Chronic atrial fibrillation with rapid ventricular response. 9. Morbid obesity. PLAN OF TREATMENT: We are going to continue the oxygen. Continue albuterol q.4 h. and daptomycin q.48 h. Continue NicoDerm patch 21 mg daily, meropenem 500 mg IV daily, Coumadin 5 mg daily. So far, the INR is therapeutic. Continue morphine 2 mg IV q.6 h. as needed, Zofran 4 mg q.4 h. as needed, Solu-Medrol 120 mg IV once a day, Cardizem 90 mg q.6 h., Protonix 40 mg daily, hydralazine 25 mg q.8 h. Continue furosemide 40 mg IV twice a day. We are going to replace the potassium and recheck the BMP tomorrow. Might discharge tomorrow. Job#: [id number]
[2017-08-25] VITALS (7 sets, daily range): BP systolic 142–162; BP diastolic 81–100
[2017-08-25] MEDS: DILTIAZEM HCL 60 MG TAB NG SCH ×4 (00:01→17:52)
[2017-08-25] MEDS: INSULIN REGULAR, HUMAN 100 UNIT/1 ML 3ML VIAL SQ SCH ×3 (00:03→11:42)
[2017-08-25] MEDS: FUROSEMIDE 40 MG TAB PO SCH (06:10)
[2017-08-25] MEDS: DEXTROSE 5% 1,000 ML IV SCH (06:10)
[2017-08-25] MEDS: MORPHINE SULFATE 2 MG/ML SYR IV PRN ×3 (06:11→22:13)
[2017-08-25 06:18] LABS: INR 1.94; PROTHROMBIN TIME 20.8 seconds (11.9-14.5)
[2017-08-25] MEDS: HYDRALAZINE HCL 25 MG TAB PO SCH (06:28)
[2017-08-25 06:35] LABS: ALANINE AMINOTRANSFERASE 70 IU/L (0-55); ALBUMIN 2.6 g/dL (3.5-5.0); ALBUMIN/GLOBULIN RATIO 0.6 (0.8-2.0); ALKALINE PHOSPHATASE 50 IU/L (40-150); ANION GAP 9.3 mmol/L (8-16); BLOOD UREA NITROGEN 26 mg/dL (7-26); BUN/CREATININE RATIO 28 (6-25); CALCIUM 9.1 mg/dL (8.4-10.2); CHLORIDE 93 mmol/L (98-107); CREATININE, SERUM 0.94 mg/dL (0.72-1.25); EST GLOMERULAR FILTRATION RATE > 60 ML/MIN (60-); GLUCOSE 116 mg/dL (74-118); MAGNESIUM 1.9 MG/DL (1.3-2.1); POTASSIUM 3.3 mmol/L (3.5-5.1); SODIUM 140 mmol/L (136-145)
[2017-08-25 06:40] LABS: CARBON DIOXIDE 41 mmol/L (22-29)
[2017-08-25] MEDS: IPRATROPIUM BROMIDE 0.02% 2.5 ML NEB NEB SCH ×5 (07:00→23:30)
[2017-08-25] MEDS: METHYLPREDNISOLONE SOD SUCC 40 MG/ML VIAL IV SCH (07:50)
[2017-08-25] MEDS: PANTOPRAZOLE 40 MG 10ML VIAL IV SCH (08:54)
[2017-08-25] MEDS: MEROPENEM 500 MG VIAL IV SCH (08:54)
[2017-08-25] MEDS: DAPTOMYCIN 500 MG in SODIUM CHLORIDE 0.9% 100 ML IV SCH (14:05)
[2017-08-25] MEDS: HYDRALAZINE HCL 100 MG TABLET PO SCH ×2 (14:05→21:27)
[2017-08-25] MEDS: ONDANSETRON HCL INJ 2 MG/ML VIAL IV PRN ×2 (15:45→22:13)
[2017-08-25] MEDS: MUPIROCIN 2% OINT 22 GM TUBE TOP SCH (16:25)
[2017-08-25] MEDS: SILVER ANTIMICROBIAL WOUND GEL 45ML TP SCH (16:25)
[2017-08-25] MEDS ORDERED: POTASSIUM CHLORIDE 20MEQ/100ML 200 ML IV ONE (16:45)
[2017-08-25] MEDS ORDERED: ACETAZOLAMIDE SODIUM 500 MG/VIAL IV NR (17:00)
[2017-08-25] MEDS: WARFARIN SOD 3 MG TAB PO SCH (17:20)
[2017-08-25] MEDS ORDERED: DEXTROSE 50% SYRINGE 50 ML IV PRN (17:30)
--- NOTE | 2017-08-25 18:01 | Progress Note ---
DATE: INTERNAL MEDICINE PROGRESS NOTE SUBJECTIVE: He is doing well, no significant complaint. PHYSICAL EXAM: VITAL SIGNS: Blood pressure is 149/86, temperature 98.4 degrees, heart rate 105 per minute, respiratory rate is 20 per minute, oxygen saturation 94%. HEART: Shows irregularly irregular heart rate. Normal S1 and S2 sounds. RESPIRATORY: Showed decreased breath sounds bilaterally. ABDOMEN: Soft. EXTREMITIES: Show dressing on the right leg. On the BMP: Sodium 140, potassium 3.3, chloride 93, CO2 41, BUN 26, creatinine 0.94, glucose 116. On the CBC: White blood count 11.0, hemoglobin 15.7, hematocrit 48.0, platelet count 262,000. PT 20.8, INR 1.94, PTT 31.3. AST 47, ALT 70, total bilirubin 1.3, alkaline phosphatase 50. FINAL IMPRESSION: 1. Status post respiratory failure. 2. Acute renal insufficiency. 3. Hypokalemia. 4. Chronic obstructive pulmonary disease. 5. Obstructive sleep apnea. 6. Status post congestive heart failure which is right-sided congestive heart failure. 7. Cellulitis on the right leg with an open wound. 8. Acute on chronic renal failure stage 3 to 4. 9. Chronic atrial fibrillation. 10. Morbid obesity. PLAN OF TREATMENT: Continue albuterol q.4 h. Daptomycin q. 48 h. Vasopressin has been discontinued. Potassium has been replaced times 1. We are going to do a BMP tomorrow. Continue mupirocin 1 application daily. Ambien 5 mg at night p.r.n. for sleep. Protonix 40 mg daily. Tylenol 325 mg q.4 h. as needed. Hydralazine 50 mg q.8 h. Continue monitoring blood sugar a.c. and nightly. Continue Cardizem 90 mg q.6 h. p.o. Continue Coumadin 6 mg daily. Continue meropenem 500 mg IV piggyback daily. Morphine 2 mg IV q.6 h. Acetazolamide sodium 500 mg 1 time. Continue physical and occupational therapy, hopefully just this week. Job#: [id number] EV
[2017-08-25] MEDS ORDERED: INSULIN LISPRO 100 UNIT/1 ML 3ML VIAL SQ SCH (21:00)
[2017-08-25] MEDS: NICOTINE 21 MG/EA PATCH TOP PRN (21:57)
[2017-08-25] MEDS: INSULIN LISPRO 100 UNIT/1 ML 3ML VIAL SQ SCH (22:16)
[2017-08-25] MEDS: ZOLPIDEM TARTRATE 5 MG TAB PO PRN (23:52)
[2017-08-26] VITALS (8 sets, daily range): BP systolic 134–168; BP diastolic 66–101
[2017-08-26] MEDS: DILTIAZEM HCL 60 MG TAB NG SCH ×4 (00:30→17:20)
[2017-08-26] MEDS: IPRATROPIUM BROMIDE 0.02% 2.5 ML NEB NEB SCH ×6 (03:00→23:30)
[2017-08-26 06:15] LABS: BASOPHILS % 0.1 % (0.0-1.0); EOSINOPHILS % 0.3 % (0.0-6.0); HEMOGLOBIN 15.5 g/dL (14.0-18.0); LYMPHOCYTES # (AUTO) 1.1 (1.0-3.2); LYMPHOCYTES % 9.8 % (18.0-39.1); MEAN CORPUSCULAR HEMOGLOBIN 32.4 pg (28-32); MEAN CORPUSCULAR VOLUME 98.3 fL (81-99); MONOCYTES # (AUTO) 0.8 (0.2-0.8); MONOCYTES % 7.2 % (4.4-11.3); NEUTROPHILS # (AUTO) 9.3 (2.1-6.9); NEUTROPHILS % 82.1 % (38.7-80.0); PLATELET COUNT 244 x10e3/uL (140-360); RED BLOOD COUNT 4.78 x10e6/uL (4.3-5.7)
[2017-08-26] MEDS: HYDRALAZINE HCL 100 MG TABLET PO SCH (06:25)
[2017-08-26 06:32] LABS: ANION GAP 12.5 mmol/L (8-16); BLOOD UREA NITROGEN 23 mg/dL (7-26); BUN/CREATININE RATIO 24 (6-25); CALCIUM 9.1 mg/dL (8.4-10.2); CARBON DIOXIDE 37 mmol/L (22-29); CHLORIDE 93 mmol/L (98-107); CREATININE, SERUM 0.94 mg/dL (0.72-1.25); EST GLOMERULAR FILTRATION RATE > 60 ML/MIN (60-); GLUCOSE 181 mg/dL (74-118); POTASSIUM 3.5 mmol/L (3.5-5.1); SODIUM 139 mmol/L (136-145)
[2017-08-26] MEDS: MORPHINE SULFATE 2 MG/ML SYR IV PRN ×3 (06:47→21:31)
[2017-08-26] MEDS: ONDANSETRON HCL INJ 2 MG/ML VIAL IV PRN ×3 (06:47→21:31)
[2017-08-26] MEDS: INSULIN LISPRO 100 UNIT/1 ML 3ML VIAL SQ SCH ×4 (07:50→21:33)
[2017-08-26] MEDS: MEROPENEM 500 MG VIAL IV SCH (08:26)
[2017-08-26] MEDS: PANTOPRAZOLE 40 MG 10ML VIAL IV SCH (08:26)
[2017-08-26] MEDS: MUPIROCIN 2% OINT 22 GM TUBE TOP SCH (12:56)
[2017-08-26] MEDS: SILVER ANTIMICROBIAL WOUND GEL 45ML TP SCH (12:56)
[2017-08-26] MEDS: CHLORASEPTIC SPRAY 177 ML BTL MM PRN ×2 (13:26→20:22)
[2017-08-26 16:59] LABS: INR 1.49; PROTHROMBIN TIME 16.9 seconds (11.9-14.5)
--- NOTE | 2017-08-26 17:11 | Progress Note ---
DATE: ADDENDUM TO INTERNAL MEDICINE PROGRESS NOTE Dr. Tiwari will be covering for me starting tomorrow, August 27, through September 03 at 7 a.m. Job#: [id number]
[2017-08-26] MEDS: WARFARIN SOD 3 MG TAB PO SCH (17:15)
--- NOTE | 2017-08-26 17:15 | Progress Note ---
DATE: INTERNAL MEDICINE PROGRESS NOTE SUBJECTIVE: Patient is doing well, no significant complaints except for shortness of breath when she walks. PHYSICAL EXAM: VITAL SIGNS: Blood pressure 168/86, temperature 98.8, heart rate 107 per minute, respiratory rate is 18 per minute, oxygen saturation 93%. HEART: Shows irregularly irregular heart rate, normal S1 and S2 sounds. LUNGS: Show decreased breath sounds bilaterally. ABDOMEN: Soft. EXTREMITIES: Show dressing on the right leg. On the BMP: Sodium 139, potassium 3.5, chloride 93, CO2 38, BUN 23, creatinine 0.94, glucose 181. On the CBC: White blood count 11.2, hemoglobin is 15.5, hematocrit 47.0, platelet count 244,000. PT 20.8, INR 1.94, PTT 31.3. AST 47, ALT 70, total bilirubin 1.3, alkaline phosphatase is 50. FINAL IMPRESSION: 1. Acute renal failure, which is resolved. 2. Hypokalemia. 3. Chronic obstructive pulmonary disease exacerbation. 4. Obstructive sleep apnea. 5. Status post congestive heart failure which was right-sided congestive heart failure. 6. Cellulitis and open wound on the right leg. 7. Chronic atrial fibrillation. 8. Morbid obesity. PLAN OF TREATMENT: Continue Atrovent q.4 h. Continue albuterol q.4 h. Continue Ambien 5 mg at night p.r.n. for sleep. NicoDerm patch 21 mg daily. Hydralazine 50 mg q.6 h. Protonix 40 mg daily. Cardizem 90 mg q.6 h. Coumadin 6 mg daily. Meropenem 500 mg IV piggyback daily. Morphine 2 mg IV q.6 h. Continue monitoring blood sugar a.c. and nightly. Renal diet. Job#: [id number] EV
[2017-08-26] MEDS: HYDRALAZINE HCL 25 MG TAB PO SCH (17:20)
[2017-08-26] MEDS: NICOTINE 21 MG/EA PATCH TOP PRN (21:31)
[2017-08-27] VITALS (9 sets, daily range): BP systolic 119–171; BP diastolic 83–98
[2017-08-27] MEDS: DILTIAZEM HCL 60 MG TAB NG SCH ×2 (00:45→05:45)
[2017-08-27] MEDS: HYDRALAZINE HCL 25 MG TAB PO SCH ×4 (00:45→17:17)
[2017-08-27] MEDS: IPRATROPIUM BROMIDE 0.02% 2.5 ML NEB NEB SCH ×6 (03:00→23:00)
[2017-08-27 05:46] LABS: BASOPHILS % 0.1 % (0.0-1.0); EOSINOPHILS # (AUTO) 0.2 (0.0-0.4); EOSINOPHILS % 1.5 % (0.0-6.0); HEMATOCRIT 48.6 % (38.2-49.6); HEMOGLOBIN 15.4 g/dL (14.0-18.0); LYMPHOCYTES % 9.7 % (18.0-39.1); MEAN CORPUSCULAR HEMOGLOBIN 32.4 pg (28-32); MEAN CORPUSCULAR HGB CONC 31.7 g/dL (31-35); MEAN CORPUSCULAR VOLUME 102.1 fL (81-99); MONOCYTES # (AUTO) 0.9 (0.2-0.8); MONOCYTES % 8.2 % (4.4-11.3); NEUTROPHILS # (AUTO) 8.5 (2.1-6.9); NEUTROPHILS % 79.9 % (38.7-80.0); PLATELET COUNT 217 x10e3/uL (140-360); RED BLOOD COUNT 4.76 x10e6/uL (4.3-5.7); RED CELL DISTRIBUTION WIDTH 14.1 % (11.7-14.4)
[2017-08-27] MEDS: ONDANSETRON HCL INJ 2 MG/ML VIAL IV PRN (05:48)
[2017-08-27] MEDS: MORPHINE SULFATE 2 MG/ML SYR IV PRN ×2 (05:48→21:01)
[2017-08-27 06:04] LABS: INR 1.48; PROTHROMBIN TIME 16.8 seconds (11.9-14.5)
[2017-08-27 06:15] LABS: ALANINE AMINOTRANSFERASE 98 IU/L (0-55); ALBUMIN 2.6 g/dL (3.5-5.0); ALBUMIN/GLOBULIN RATIO 0.7 (0.8-2.0); ALKALINE PHOSPHATASE 58 IU/L (40-150); ANION GAP 11.6 mmol/L (8-16); BLOOD UREA NITROGEN 20 mg/dL (7-26); BUN/CREATININE RATIO 22 (6-25); CALCIUM 8.9 mg/dL (8.4-10.2); CARBON DIOXIDE 37 mmol/L (22-29); CHLORIDE 95 mmol/L (98-107); CREATININE, SERUM 0.89 mg/dL (0.72-1.25); EST GLOMERULAR FILTRATION RATE > 60 ML/MIN (60-); GLUCOSE 109 mg/dL (74-118); POTASSIUM 3.6 mmol/L (3.5-5.1); SODIUM 140 mmol/L (136-145)
[2017-08-27] MEDS: INSULIN LISPRO 100 UNIT/1 ML 3ML VIAL SQ SCH ×4 (07:30→21:00)
[2017-08-27] MEDS: GLIMEPIRIDE 2 MG TAB PO SCH (08:13)
[2017-08-27] MEDS: SILVER ANTIMICROBIAL WOUND GEL 45ML TP SCH (08:43)
[2017-08-27] MEDS ORDERED: FUROSEMIDE 40 MG TAB PO SCH (09:00)
[2017-08-27] MEDS: NIFEDIPINE CR 30 MG TAB PO SCH (09:34)
[2017-08-27] MEDS: CHLORASEPTIC SPRAY 177 ML BTL MM PRN ×2 (09:35→21:01)
--- NOTE | 2017-08-27 10:01 | Progress Note ---
DATE: August 27, 2017 Mr. Chua is a 62 year old with a history of COPD, congestive heart failure, diabetes, admitted through the emergency room with COPD exacerbation and right lower extremity cellulitis. He has been on antibiotics. PHYSICAL EXAMINATION GENERAL: Today, he is awake and alert. He is feeling a little better. He is on oxygen. VITALS: Temperature 97.4, blood pressure 153/98. HEART: Irregularly irregular. LUNGS: Decreased breath sounds bilaterally. ABDOMEN: Distended and soft. EXTREMITIES: Right lower extremity shows erythema. There is a dressing on his right leg. BLOOD WORK: Potassium is 3.6, creatinine is 0.89, glucose 109. White count is 10.6, hemoglobin 15.4, hematocrit 48.6. Chest x-ray shows there is a stable enlarged heart and some vascular congestion. Blood cultures were negative. Urine culture was negative. Sputum culture was negative. Wound culture no growth after 3 days. ASSESSMENT AND PLAN 1. Chronic obstructive pulmonary disease exacerbation. 2. Obstructive sleep apnea. 3. Acute renal failure, resolved. 4. Hypokalemia. 5. Inrki-uy-udkewmt diastolic congestive heart failure. 6. Right lower extremity open wound and cellulitis. 7. Chronic atrial fibrillation. 8. Morbid obesity. PLAN: At the present time, is to continue IV antibiotics. Continue neb treatments. Continue Coumadin 6 mg daily. Continue to monitor sugar and ADA diet. All of this was discussed with the patient. All questions were answered to satisfaction. Job#: [id number] MIRANDA
[2017-08-27] MEDS ORDERED: DAPTOMYCIN 500 MG in SODIUM CHLORIDE 0.9% 100 ML IV SCH (11:00)
[2017-08-27] MEDS: DAPTOMYCIN 500 MG in SODIUM CHLORIDE 0.9% 100 ML IV SCH (12:14)
[2017-08-27] MEDS ORDERED: MEROPENEM 500MG 500 MG in SODIUM CHLORIDE 0.9% 50ML 50 ML IV SCH (14:00)
[2017-08-27] MEDS: MEROPENEM 500 MG VIAL IV SCH ×2 (14:59→22:28)
--- NOTE | 2017-08-27 16:27 | Consultation ---
DATE OF CONSULTATION: August 27, 2017 REFERRING PHYSICIAN: Dr. Cassius Armstrong. I would like to thank Dr. Armstrong for asking me to see Mr. Chua in consultation. REASON FOR CONSULTATION: 1. Debilitation secondary to CHF. 2. COPD. 3. Diabetes. 4. Lower extremity wounds. HISTORY: The patient is a 62-year-old male who came into this facility on 08/17/17. The patient had shortness of breath and diagnosed with respiratory failure secondary to [id number] COPD, had some congestion. He was seen by Dr. Hirsch in cardiac consultation and diagnosed with cor pulmonale as well as Pickwickian syndrome in addition to his atrial fibrillation. He was seen by Dr. Armstrong for medical management issues. The patient is doing a little bit better. I am being asked to evaluate for rehab needs. PAST MEDICAL HISTORY: COPD, atrial fibrillation, cor pulmonale, history of morbid obesity, history of cellulitis. SOCIAL HISTORY: He lives with his mother in a one-story home. 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 ALLERGIES: NO KNOWN DRUG ALLERGIES. FAMILY HISTORY: Mother has diabetes. HABITS: He denies smoking or drinking. LABORATORY DATA: White blood cell count of 10.56, hemoglobin 15.4, hematocrit 48.6, platelets 217,000, sodium 140, potassium 3.6, BUN 20, creatinine 0.89. Sodium 140, potassium 3.6, BUN 20, creatinine 0.89. White cell count of 9.01. Hemoglobin 15.8. Hematocrit 48.0. Platelets 219,000. IMAGING: Chest x-ray shows lines, tubes stable, IJ dialysis catheter and right PICC line near the expected cavoatrial junction, stable, enlarged cardiac silhouette. Review of the therapy notes shows that the patient started therapy yesterday and he got up into the chair, ambulated about 20 feet, but refused to do any more PT other than that. PHYSICAL EXAMINATION GENERAL: The patient is awake, alert and in no apparent distress at this time. He is following commands. HEENT: Gaze is conjugate. He is on O2 via nasal cannula. Eyes: Extraocular movements intact. Oral: No dysarthria. Tongue midline. HEART: Regular. LUNGS: Diminished breath sounds. ABDOMEN: Moderately obese. EXTREMITIES: He has dressings to the right distal lower leg and to external left lower leg. I did not take the dressings down. SENSORY: He says it is sore but he is denying any new onset numbness or tingling of hands, feet or face. MANUAL MUSCLE TESTING: He is actually pretty strong. Shoulder flexion and extension is 4-4+/5 strength bilaterally. Elbow flexion and extension and certified medication aide 4+/5 strength bilaterally. In the lower extremities, there has been achievable range of motion, which was quite significant. He demonstrated 5/5 strength throughout. IMPRESSION 1. Debilitated state. 2. Patient with history of cor pulmonale. 3. History of atrial fibrillation. 4. Cellulitis to lower extremities. 5. History of congestive heart failure. 6. Chronic obstructive pulmonary disease. PLAN: At this time, the patient is self limiting with his ambulation. He has multiple medical issues at this time. I think that therapy should continue to try to work with him to try to slowly, gradually build up his endurance over time. PRECAUTIONS: Cardiac, falls. Thank you once again for allowing me to participate in the care of this very interesting patient. Job#: [id number]
[2017-08-27] MEDS: WARFARIN SOD 2 MG TAB PO SCH (17:18)
[2017-08-27] MEDS: NICOTINE 21 MG/EA PATCH TOP PRN (22:28)
[2017-08-27] MEDS: ZOLPIDEM TARTRATE 5 MG TAB PO PRN (22:28)
[2017-08-28] VITALS (7 sets, daily range): BP systolic 107–158; BP diastolic 75–87
[2017-08-28] MEDS: IPRATROPIUM BROMIDE 0.02% 2.5 ML NEB NEB SCH ×6 (03:00→23:30)
[2017-08-28 05:26] LABS: INR 1.34; PROTHROMBIN TIME 15.6 seconds (11.9-14.5)
[2017-08-28] MEDS: MEROPENEM 500 MG VIAL IV SCH ×3 (06:44→22:42)
[2017-08-28] MEDS: LEVALBUTEROL HCL SOLN NEBU 0.63 MG/3 ML NEB INH PRN ×5 (07:20→23:30)
[2017-08-28] MEDS: INSULIN LISPRO 100 UNIT/1 ML 3ML VIAL SQ SCH ×4 (07:30→21:00)
[2017-08-28] MEDS: MORPHINE SULFATE 2 MG/ML SYR IV PRN ×4 (08:00→23:40)
[2017-08-28] MEDS: GLIMEPIRIDE 2 MG TAB PO SCH (08:36)
[2017-08-28] MEDS: METOPROLOL TARTRATE 50 MG TAB PO SCH ×3 (09:30→22:42)
[2017-08-28] MEDS: SILVER ANTIMICROBIAL WOUND GEL 45ML TP SCH (09:33)
[2017-08-28] MEDS: NIFEDIPINE CR 30 MG TAB PO SCH (09:33)
[2017-08-28] MEDS: HYDRALAZINE HCL 25 MG TAB PO SCH ×2 (09:33→17:14)
[2017-08-28] MEDS: FUROSEMIDE 40 MG TAB PO SCH (09:33)
[2017-08-28] MEDS: DAPTOMYCIN 500 MG in SODIUM CHLORIDE 0.9% 100 ML IV SCH (12:24)
[2017-08-28] MEDS: ACETAMINOPHEN 325 MG/10 ML UDC NG PRN (16:53)
[2017-08-28] MEDS: WARFARIN SOD 2 MG TAB PO SCH (17:14)
[2017-08-28] MEDS: NICOTINE 21 MG/EA PATCH TOP PRN (22:42)
[2017-08-28] MEDS: ZOLPIDEM TARTRATE 5 MG TAB PO PRN (22:42)
[2017-08-29 00:21] VITALS: BP 136/83
[2017-08-29] MEDS: IPRATROPIUM BROMIDE 0.02% 2.5 ML NEB NEB SCH ×6 (03:45→23:00)
[2017-08-29] MEDS: LEVALBUTEROL HCL SOLN NEBU 0.63 MG/3 ML NEB INH PRN ×2 (03:45→20:00)
[2017-08-29 04:00] VITALS: BP 146/93
[2017-08-29 05:30] LABS: INR 1.45; PROTHROMBIN TIME 16.6 seconds (11.9-14.5)
[2017-08-29] MEDS: MEROPENEM 500 MG VIAL IV SCH ×3 (06:10→22:17)
[2017-08-29] MEDS: METOPROLOL TARTRATE 50 MG TAB PO SCH ×3 (06:11→17:29)
[2017-08-29] MEDS: MORPHINE SULFATE 2 MG/ML SYR IV PRN ×3 (06:39→22:18)
[2017-08-29] MEDS: INSULIN LISPRO 100 UNIT/1 ML 3ML VIAL SQ SCH ×4 (07:30→21:30)
[2017-08-29 08:02] VITALS: BP 132/87
[2017-08-29] MEDS: GLIMEPIRIDE 2 MG TAB PO SCH (08:23)
[2017-08-29] MEDS: HYDRALAZINE HCL 25 MG TAB PO SCH ×2 (09:37→17:30)
[2017-08-29] MEDS: FUROSEMIDE 40 MG TAB PO SCH (09:37)
[2017-08-29] MEDS: NIFEDIPINE CR 30 MG TAB PO SCH (09:38)
[2017-08-29] MEDS: SILVER ANTIMICROBIAL WOUND GEL 45ML TP SCH (09:38)
[2017-08-29] MEDS: DAPTOMYCIN 500 MG in SODIUM CHLORIDE 0.9% 100 ML IV SCH (12:02)
[2017-08-29 12:06] VITALS: BP 140/86
[2017-08-29 15:33] VITALS: BP 133/84
[2017-08-29] MEDS: WARFARIN SOD 2 MG TAB PO SCH (17:32)
[2017-08-29 20:00] VITALS: BP 142/72
[2017-08-29] MEDS ORDERED: ALTEPLASE RECOMBINANT 2 MG/2 ML VIAL IV PRN (21:15)
[2017-08-29] MEDS: ZOLPIDEM TARTRATE 5 MG TAB PO PRN (22:51)
[2017-08-29] MEDS: NICOTINE 21 MG/EA PATCH TOP PRN (22:51)
[2017-08-30] VITALS (8 sets, daily range): BP systolic 117–148; BP diastolic 70–90
[2017-08-30] MEDS: IPRATROPIUM BROMIDE 0.02% 2.5 ML NEB NEB SCH ×6 (03:00→23:00)
[2017-08-30] MEDS: MEROPENEM 500 MG VIAL IV SCH ×3 (05:36→22:03)
[2017-08-30] MEDS: MORPHINE SULFATE 2 MG/ML SYR IV PRN ×3 (05:37→20:41)
[2017-08-30 05:43] LABS: BASOPHILS % 0.3 % (0.0-1.0); EOSINOPHILS # (AUTO) 0.3 (0.0-0.4); HEMATOCRIT 46.5 % (38.2-49.6); HEMOGLOBIN 14.8 g/dL (14.0-18.0); LYMPHOCYTES # (AUTO) 1.2 (1.0-3.2); LYMPHOCYTES % 12.9 % (18.0-39.1); MEAN CORPUSCULAR HEMOGLOBIN 32.3 pg (28-32); MEAN CORPUSCULAR HGB CONC 31.8 g/dL (31-35); MEAN CORPUSCULAR VOLUME 101.5 fL (81-99); MONOCYTES % 10.5 % (4.4-11.3); NEUTROPHILS # (AUTO) 6.6 (2.1-6.9); NEUTROPHILS % 72.9 % (38.7-80.0); PLATELET COUNT 217 x10e3/uL (140-360); RED BLOOD COUNT 4.58 x10e6/uL (4.3-5.7); RED CELL DISTRIBUTION WIDTH 14.3 % (11.7-14.4)
[2017-08-30 06:01] LABS: INR 1.48; PROTHROMBIN TIME 16.8 seconds (11.9-14.5)
[2017-08-30 06:11] LABS: ALANINE AMINOTRANSFERASE 58 IU/L (0-55); ALBUMIN 2.6 g/dL (3.5-5.0); ALBUMIN/GLOBULIN RATIO 0.7 (0.8-2.0); ALKALINE PHOSPHATASE 66 IU/L (40-150); ANION GAP 12.7 mmol/L (8-16); BLOOD UREA NITROGEN 14 mg/dL (7-26); BUN/CREATININE RATIO 16 (6-25); CALCIUM 8.6 mg/dL (8.4-10.2); CARBON DIOXIDE 36 mmol/L (22-29); CHLORIDE 97 mmol/L (98-107); CREATININE, SERUM 0.86 mg/dL (0.72-1.25); EST GLOMERULAR FILTRATION RATE > 60 ML/MIN (60-); GLUCOSE 95 mg/dL (74-118); POTASSIUM 3.7 mmol/L (3.5-5.1); SODIUM 142 mmol/L (136-145)
[2017-08-30] MEDS: FUROSEMIDE 40 MG TAB PO SCH (09:51)
[2017-08-30] MEDS: GLIMEPIRIDE 2 MG TAB PO SCH (09:51)
[2017-08-30] MEDS: HYDRALAZINE HCL 25 MG TAB PO SCH ×2 (09:51→18:13)
[2017-08-30] MEDS: METOPROLOL TARTRATE 50 MG TAB PO SCH ×2 (09:52→18:14)
[2017-08-30] MEDS: SILVER ANTIMICROBIAL WOUND GEL 45ML TP SCH (09:52)
[2017-08-30] MEDS: NIFEDIPINE CR 30 MG TAB PO SCH (09:52)
[2017-08-30] MEDS: INSULIN LISPRO 100 UNIT/1 ML 3ML VIAL SQ SCH ×4 (09:53→21:00)
[2017-08-30] MEDS ORDERED: FUROSEMIDE INJ 10 MG/ML 4 ML VIAL IV NR (10:45)
[2017-08-30] MEDS ORDERED: ALBUTEROL SULFATE HFA 8GM INHALATION AEROSOL INH PRN (12:15)
--- NOTE | 2017-08-30 12:58 | Discharge Summary ---
HISTORY: Mr. Chua is a 62-year-old man with history of COPD, congestive heart failure, diabetes, admitted with COPD exacerbation and right lower extremity cellulitis. He is on antibiotics. We are awaiting rehab or SNF placement for him. PHYSICAL EXAMINATION GENERAL: Today he is awake and alert. VITAL SIGNS: Temperature is 98.4. Blood pressure is 140/86. HEART: Regular rate. LUNGS: Poor inspiratory effort. ABDOMEN: Distended and soft. LOWER EXTREMITIES: Bilateral changes of hyperpigmentation of the lower extremities. Has a wound in the right lower extremity that is under dressing. LAB WORK: Potassium 3.7, creatinine is 0.86, glucose is 95. White count 9.09, hemoglobin 14.8, hematocrit 46.5. INR today 1.48. DISCHARGE DIAGNOSES 1. Chronic obstructive pulmonary disease exacerbation. 2. Obstructive sleep apnea. 3. Acute renal failure. 4. Hypokalemia. 5. Jetbs-mp-egguweo diastolic congestive heart failure. 6. Right lower extremity open wound and cellulitis. 7. Chronic atrial fibrillation. 8. Morbid obesity. PLAN AT THE PRESENT TIME: To increase the Coumadin. He is on 8 mg. We are going to increase it to 10 mg. Continue to monitor INR. Continue blood pressure medications and wound care. Continue ADA diet and sliding scale with insulin. He goes home to clindamycin and doxycycline. We are awaiting SNF or rehab placement. Please see home medication reconciliation list. HEENA SAN MD Job#: [id number] EV
[2017-08-30] MEDS: DAPTOMYCIN 500 MG in SODIUM CHLORIDE 0.9% 100 ML IV SCH (13:15)
[2017-08-30] MEDS ORDERED: WARFARIN SOD 2 MG TAB PO SCH (17:00)
[2017-08-30] MEDS: WARFARIN SOD 5 MG TAB PO SCH (18:13)
[2017-08-30] MEDS: ZOLPIDEM TARTRATE 5 MG TAB PO PRN (23:17)
[2017-08-31] VITALS (7 sets, daily range): BP systolic 120–178; BP diastolic 68–90
[2017-08-31] MEDS: IPRATROPIUM BROMIDE 0.02% 2.5 ML NEB NEB SCH ×6 (03:00→23:45)
[2017-08-31] MEDS: ACETAMINOPHEN 325 MG/10 ML UDC NG PRN (04:21)
[2017-08-31] MEDS: NICOTINE 21 MG/EA PATCH TOP PRN (04:21)
[2017-08-31] MEDS: MORPHINE SULFATE 2 MG/ML SYR IV PRN ×3 (04:22→17:31)
[2017-08-31] MEDS: MEROPENEM 500 MG VIAL IV SCH ×3 (05:45→22:01)
[2017-08-31 05:51] LABS: INR 1.41; PROTHROMBIN TIME 16.2 seconds (11.9-14.5)
[2017-08-31] MEDS: INSULIN LISPRO 100 UNIT/1 ML 3ML VIAL SQ SCH ×4 (07:30→20:20)
[2017-08-31] MEDS: FUROSEMIDE 40 MG TAB PO SCH (08:20)
[2017-08-31] MEDS: HYDRALAZINE HCL 25 MG TAB PO SCH ×2 (08:20→16:44)
[2017-08-31] MEDS: GLIMEPIRIDE 2 MG TAB PO SCH (08:21)
[2017-08-31] MEDS: NIFEDIPINE CR 30 MG TAB PO SCH (08:21)
[2017-08-31] MEDS: METOPROLOL TARTRATE 50 MG TAB PO SCH ×2 (08:21→16:45)
--- NOTE | 2017-08-31 10:53 | Discharge Summary ---
Mr. Chua is a 62-year-old man with a history of COPD, congestive heart failure, diabetes admitted with COPD exacerbation and right lower extremity cellulitis. Insurance denied SNF or rehab. PHYSICAL EXAMINATION GENERAL: He is awake and alert. VITALS: Temperature is 96.7, blood pressure 121/68. HEART: Irregularly irregular. LUNGS: Poor inspiratory effort. ABDOMEN: Distended and soft. BLOOD WORK: Potassium 3.7, creatinine 0.86, glucose 95. White count 9.09, hemoglobin 14.8, hematocrit 46.5. INR 1.41. ASSESSMENT AND PLAN 1. Chronic obstructive pulmonary disease exacerbation. 2. Obstructive sleep apnea. 3. Acute renal failure. 4. Hypokalemia. 5. Cxzkg-je-bchffuj diastolic congestive heart failure. 6. Right lower extremity open wound and cellulitis. 7. Chronic atrial fibrillation. 8. Morbid obesity. PLAN: At the present time, will increase the Coumadin to 10 mg daily. INR is still nontherapeutic. Continue ADA diet. Sliding scale with insulin. He is going to probably need home with home health. Infectious disease already has doxycycline and clindamycin for him p.o. Please see home medication reconciliation list. HEENA SAN MD Job#: [id number] MD
[2017-08-31] MEDS: SILVER ANTIMICROBIAL WOUND GEL 45ML TP SCH (12:03)
[2017-08-31] MEDS: DAPTOMYCIN 500 MG in SODIUM CHLORIDE 0.9% 100 ML IV SCH (13:05)
[2017-08-31] MEDS: WARFARIN SOD 5 MG TAB PO SCH (16:44)
[2017-08-31] MEDS: LEVALBUTEROL HCL SOLN NEBU 0.63 MG/3 ML NEB INH PRN ×2 (19:45→23:45)
[2017-09-01] VITALS: BP 131/82
[2017-09-01] MEDS ORDERED: MORPHINE IV ONE (00:02)
[2017-09-01] MEDS ORDERED: ZOLPIDEM TARTRATE 5 MG TAB PO ONE (00:03)
[2017-09-01] MEDS ORDERED: MORPHINE SULFATE INJ 4 MG/ML INJ IV ONE (00:36)
[2017-09-01 04:00] VITALS: BP 118/71
[2017-09-01] MEDS: MEROPENEM 500 MG VIAL IV SCH ×2 (05:36→13:22)
[2017-09-01] MEDS: NICOTINE 21 MG/EA PATCH TOP PRN (06:47)
[2017-09-01] MEDS: INSULIN LISPRO 100 UNIT/1 ML 3ML VIAL SQ SCH ×3 (07:30→15:57)
[2017-09-01 07:50] LABS: ALANINE AMINOTRANSFERASE 42 IU/L (0-55); ALBUMIN 2.6 g/dL (3.5-5.0); ALBUMIN/GLOBULIN RATIO 0.7 (0.8-2.0); ALKALINE PHOSPHATASE 63 IU/L (40-150); BLOOD UREA NITROGEN 15 mg/dL (7-26); BUN/CREATININE RATIO 19 (6-25); CALCIUM 8.8 mg/dL (8.4-10.2); CARBON DIOXIDE 32 mmol/L (22-29); CHLORIDE 102 mmol/L (98-107); CREATININE, SERUM 0.81 mg/dL (0.72-1.25); EST GLOMERULAR FILTRATION RATE > 60 ML/MIN (60-); GLUCOSE 115 mg/dL (74-118); SODIUM 142 mmol/L (136-145)
[2017-09-01 07:52] VITALS: BP 130/85
[2017-09-01 08:00] VITALS: BP 130/85
[2017-09-01 08:22] LABS: INR 1.75; PROTHROMBIN TIME 19.2 seconds (11.9-14.5)
[2017-09-01] MEDS: GLIMEPIRIDE 2 MG TAB PO SCH (08:25)
[2017-09-01] MEDS: FUROSEMIDE 40 MG TAB PO SCH (08:25)
[2017-09-01] MEDS: HYDRALAZINE HCL 25 MG TAB PO SCH ×2 (08:25→16:10)
[2017-09-01] MEDS: METOPROLOL TARTRATE 50 MG TAB PO SCH (08:26)
[2017-09-01] MEDS: SILVER ANTIMICROBIAL WOUND GEL 45ML TP SCH (08:26)
[2017-09-01] MEDS: NIFEDIPINE CR 30 MG TAB PO SCH (08:26)
[2017-09-01] MEDS: IPRATROPIUM BROMIDE 0.02% 2.5 ML NEB NEB SCH ×3 (08:51→16:00)
[2017-09-01] MEDS: LEVALBUTEROL HCL SOLN NEBU 0.63 MG/3 ML NEB INH PRN ×3 (08:52→16:00)
[2017-09-01] MEDS ORDERED: MUPIROCIN 2% OINT 22 GM TUBE TOP SCH (09:00)
[2017-09-01] MEDS ORDERED: TRAMADOL HCL 50 MG TAB PO PRN (10:00)
[2017-09-01] MEDS ORDERED: HYDRALAZINE HCL25 MG PO (11:04)
[2017-09-01] MEDS ORDERED: metoprolol PO (11:04)
[2017-09-01] MEDS ORDERED: nifedipine PO (11:07)
[2017-09-01] MEDS ORDERED: LASIX40 MG PO (11:08)
[2017-09-01] MEDS ORDERED: WARFARIN SODIUM10 MG PO (11:08)
[2017-09-01] MEDS ORDERED: AMARYL2 MG PO (11:09)
[2017-09-01] MEDS ORDERED: cleocin PO (11:15)
[2017-09-01] MEDS ORDERED: doxycycline PO (11:16)
[2017-09-01 11:52] VITALS: BP 113/89
[2017-09-01] MEDS: DAPTOMYCIN 500 MG in SODIUM CHLORIDE 0.9% 100 ML IV SCH (12:00)
--- NOTE | 2017-09-01 13:04 | Discharge Summary ---
Mr. Chua is a 62-year-old man with a history of COPD, congestive heart failure, diabetes. Admitted with COPD exacerbation and right lower extremity cellulitis. He is not a candidate for SNF or rehab. We are trying to get home health and O2 at home, but the patient does not have any type of insurance. On physical examination, he is awake and alert. He is feeling better. Temperature is 97.3. Blood pressure is 130/85. The heart is regular rate. The lungs have decreased breath sounds bilaterally. Abdomen is distended and soft. Lower extremities with cellulitis. On the blood work, white count is 9.09, hemoglobin 14.8, potassium 4.0, creatinine 0.81. INR is 1.75. ASSESSMENT AND PLAN 1. Chronic obstructive pulmonary disease exacerbation. 2. Sleep apnea. 3. Hypoxemia, chronic. 4. Acute renal failure, resolved. 5. Axbwd-rw-ertuykj diastolic congestive heart failure. 6. Right lower extremity open wound and cellulitis. 7. Chronic atrial fibrillation. 8. Obesity. The plan at the present time is to discharge him home with home health and wound care as well as he is going to need home oxygen. Continue home medications. Have him follow up with his PCP in 1 week. He is going to be also on doxycycline 100 mg q.12 h. and clindamycin 300 mg q.8 h. He is to call me or come back to the emergency room if any recurrent problem. Please see home medication reconciliation list. HEENA SAN MD Job#: [id number]
[2017-09-01 16:10] VITALS: BP 113/80
[2017-09-01] MEDS: WARFARIN SOD 5 MG TAB PO SCH (16:11)
== END 2017-09-01 16:51 | disposition home or self-care (01) | DRG 871 ==
LOC: ER 12:25 → ERHOLD 16:03 → UNDOADMIN 17:21 → ERHOLD 17:21 → ICU 19:44 → MED/SURG3 08-24
PROVIDERS: ADMIT Internal Medicine; ATTEND Internal Medicine
PROC: 02HV33Z Insertion of Infusion Device into Superior Vena Cava, Percutaneous Approach (ICD-10-PCS; principal; 2017-08-17)
PROC: 5A1945Z Respiratory Ventilation, 24-96 Consecutive Hours (ICD-10-PCS; 2017-08-18)
PROC: 0BH17EZ Insertion of Endotracheal Airway into Trachea, Via Natural or Artificial Opening (ICD-10-PCS; 2017-08-18)
PROC: 02HV33Z Insertion of Infusion Device into Superior Vena Cava, Percutaneous Approach (ICD-10-PCS; 2017-08-19)
PROC: 5A1D70Z Performance of Urinary Filtration, Intermittent, Less than 6 Hours Per Day (ICD-10-PCS; 2017-08-19)
PROC: 5A1D70Z Performance of Urinary Filtration, Intermittent, Less than 6 Hours Per Day (ICD-10-PCS; 2017-08-20)
PROC: 5A1D70Z Performance of Urinary Filtration, Intermittent, Less than 6 Hours Per Day (ICD-10-PCS; 2017-08-21)
DX: A41.9 Sepsis, unspecified organism (principal); J96.21 Acute and chronic respiratory failure with hypoxia; I50.31 Acute diastolic (congestive) heart failure; N17.0 Acute kidney failure with tubular necrosis; D65 Disseminated intravascular coagulation [defibrination syndrome]; R65.21 Severe sepsis with septic shock; J96.22 Acute and chronic respiratory failure with hypercapnia; L03.115 Cellulitis of right lower limb; J44.1 Chronic obstructive pulmonary disease with (acute) exacerbation; E87.1 Hypo-osmolality and hyponatremia; E66.2 Morbid (severe) obesity with alveolar hypoventilation; I13.0 Hypertensive heart and chronic kidney disease with heart failure and stage 1 through stage 4 chronic kidney disease, or unspecified chronic kidney disease; Z68.41 Body mass index [BMI] 40.0-44.9, adult; I48.91 Unspecified atrial fibrillation; D72.829 Elevated white blood cell count, unspecified; I27.81 Cor pulmonale (chronic); R53.81 Other malaise; I87.2 Venous insufficiency (chronic) (peripheral); F17.210 Nicotine dependence, cigarettes, uncomplicated; R23.8 Other skin changes; E87.5 Hyperkalemia; I48.0 Paroxysmal atrial fibrillation; N18.3 Chronic kidney disease, stage 3 (moderate); F10.10 Alcohol abuse, uncomplicated
CPT/HCPCS: 31500; 36415; 36556; 36569; 36600; 51700; 71045; 71250; 74018; 74470; 76770; 76937; 78582; 80048; 80053; 80202; 81001; 82140; 82390; 82550; 82553; 82570; 82805; 82948; 83036; 83540; 83605; 83735; 83880; 84100; 84300; 84443; 84466; 84484; 85025; 85610; 85730; 86039; 86255; 87040; 87070; 87071; 87086; 87205; 93005; 93306; 93970; 94002; 94003; 94640; 94660; 96367; 96372; 97139; 99285; A9540; A9558; J0330; J0692; J1160; J1170; J1644; J1650; J1940; J2001; J2185; J2250; J2270; J2274; J2405; J2543; J2920; J2997; J3370; J3480; J7030; J7050; J7060; J7070; J7799